=== PATIENT | male | born 1945 | race Caucasian/White ===

== ENCOUNTER 2020-05-14 16:29 | Inpatient (IN) ==
[2020-05-14] MEDS ORDERED: SODIUM CHLORIDE 0.9% 1,000 ML IV STA ×2 (18:09→21:28)
[2020-05-14 18:26] LABS: Basophils % 0.4 % (0.0-0.8); Eosinophils # 0.2 10*3/uL (0.0-0.87); Eosinophils % 1.9 % (0.00-10.9); Hematocrit 33.5 VOL% (42.0-52.0); Hemoglobin 10.7 GM/DL (14.0-18.0); Immature Granulocytes % 0.4 %; Immature Granulocytes Absolute 0.04 #; Lymphocytes # 1.3 10*3/uL (1.4-4.0); Lymphocytes % 11.1 % (21.2-54.2); Mean Corpuscular HGB Conc 31.9 GM/DL (32-36); Mean Platelet Volume 10.3 FL (9.6-12.0); Monocytes % 6.3 % (1.7-12.7); Neutrophils % 79.9 % (38.7-73.9); Platelet Count 189 T/CUMM (130-400); Red Blood Count 3.42 MC/CUMM (3.8-5.5); Red Cell Distribution Width 13.7 % (9.3-17.3); White Blood Count 11.3 T/CUMM (4-12)
[2020-05-14] MEDS ORDERED: KETOROLAC 30 MG/1 ML VIAL IV STA (18:28)
[2020-05-14] MEDS ORDERED: ONDANSETRON 4 MG/2 ML VIAL IV ONE (18:29)
[2020-05-14 18:59] LABS: Albumin 3.5 G/DL (3.4-5.0); Bilirubin,Total 1.1 MG/DL (0.2-1.0); Osmolality,Calculated 288.4 MOS/KG (273-304); Total Protein 6.8 G/DL (6.4-8.3)
[2020-05-14] MEDS ORDERED: SODIUM CHLORIDE 0.9% 500 ML IV STA (20:15)
[2020-05-14 21:57] LABS: Basophils % 0.3 % (0.0-0.8); Eosinophils % 0.3 % (0.00-10.9); Hematocrit 27.9 VOL% (42.0-52.0); Hemoglobin 8.7 GM/DL (14.0-18.0); Immature Granulocytes % 0.4 %; Immature Granulocytes Absolute 0.05 #; Lymphocytes # 1.1 10*3/uL (1.4-4.0); Lymphocytes % 9.7 % (21.2-54.2); Mean Corpuscular HGB Conc 31.2 GM/DL (32-36); Mean Corpuscular Volume 98.6 FL (87-102); Mean Platelet Volume 9.8 FL (9.6-12.0); Neutrophils % 84.3 % (38.7-73.9); Platelet Count 170 T/CUMM (130-400); Red Blood Count 2.83 MC/CUMM (3.8-5.5); Red Cell Distribution Width 13.8 % (9.3-17.3); White Blood Count 11.3 T/CUMM (4-12)
[2020-05-14] MEDS: SODIUM CHLORIDE 0.9% 1,000 ML IV SCH (22:11)
[2020-05-14] MEDS ORDERED: MORPHINE 4 MG/1 ML VIAL IV PRN (22:30)
[2020-05-14] MEDS ORDERED: GLUCAGON 1 MG VIAL IM PRN (22:30)
[2020-05-14] MEDS ORDERED: ONDANSETRON 4 MG/2 ML VIAL IV PRN (22:30)
[2020-05-14] MEDS ORDERED: DEXTROSE 50% 25 GM/50 ML VIAL IV PRN (22:30)
[2020-05-15] MEDS ORDERED: SODIUM CHLORIDE 0.9% 1,000 ML IV PRN ×7 (00:59→17:25)
[2020-05-15 02:48] LABS: Basophils % 0.2 % (0.0-0.8); Hematocrit 25.8 VOL% (42.0-52.0); Immature Granulocytes % 0.4 %; Immature Granulocytes Absolute 0.04 #; Lymphocytes # 1.2 10*3/uL (1.4-4.0); Lymphocytes % 10.9 % (21.2-54.2); Mean Corpuscular Volume 99.6 FL (87-102); Mean Platelet Volume 10.3 FL (9.6-12.0); Monocytes % 5.4 % (1.7-12.7); Neutrophils % 83.1 % (38.7-73.9); Platelet Count 153 T/CUMM (130-400); Red Blood Count 2.59 MC/CUMM (3.8-5.5); White Blood Count 10.8 T/CUMM (4-12)
[2020-05-15] MEDS: SODIUM CHLORIDE 0.9% 1,000 ML IV SCH ×3 (07:00→19:39)
[2020-05-15] MEDS ORDERED: LACTATED RINGERS 1,000 ML IV ONE (07:44)
[2020-05-15 08:02] LABS: Basophils % 0.1 % (0.0-0.8); Hematocrit 25.8 VOL% (42.0-52.0); Hemoglobin 8.1 GM/DL (14.0-18.0); Immature Granulocytes % 0.6 %; Immature Granulocytes Absolute 0.06 #; Lymphocytes # 1.3 10*3/uL (1.4-4.0); Lymphocytes % 13.4 % (21.2-54.2); Mean Corpuscular HGB Conc 31.4 GM/DL (32-36); Mean Corpuscular Volume 97.7 FL (87-102); Neutrophils % 77.9 % (38.7-73.9); Platelet Count 125 T/CUMM (130-400); Red Blood Count 2.64 MC/CUMM (3.8-5.5); Red Cell Distribution Width 15.3 % (9.3-17.3); White Blood Count 9.4 T/CUMM (4-12)
[2020-05-15 08:27] LABS: Calcium 7.8 MG/DL (8.5-10.1); Osmolality,Calculated 298.7 MOS/KG (273-304); Risk Ratio 3.93; Thyroid Stimulating Hormone 2.75 uIU/ml (0.358-3.74); VLDL CHOLESTEROL 14.8 MG/DL
[2020-05-15 08:58] LABS: INR 1.1; PT Patient Result 11.4 SECS (9.8-11.9)
[2020-05-15] MEDS: PANTOPRAZOLE 40 MG TABLET PO SCH (09:45)
[2020-05-15] MEDS: DOXAZOSIN 4 MG TABLET PO SCH ×2 (10:40→21:32)
[2020-05-15 10:58] LABS: Bilirubin,Urine Negative (Negative); Blood, Urine Negative (Negative); Glucose,Urine (UA) Negative (Negative); Hyaline Casts,Urine 5 /LPF (0-3); Ketones,Urine 5 mg/dL (Negative); Mucus,Urine Occasional /LPF (Occasional); Nitrite,Urine Negative (Negative); Protein,Urine 100 MG/DL; RBC,Urine 1 /HPF (0-4); Squamous Epithelial Cell,Urine Occasional /HPF (0-10); Urine Appearance CLOUDY (Clear); Urine Color Amber (Yellow); Urine Specific Gravity 1.023 (1.001-1.035); WBC,Urine 3 /HPF (0-6)
[2020-05-15] MEDS ORDERED: NOREPINEPHRINE 8 MG in SODIUM CHLORIDE 0.9% 242 ML IV PRN (12:35)
[2020-05-15] MEDS ORDERED: NOREPINEPHRINE 4 MG/4 ML VIAL IV ONE (12:38)
[2020-05-15 13:08] LABS: PT Patient Result 11.1 SECS (9.8-11.9); Partial Thromboplastin Time 25.9 SECS (23.9-33.8)
[2020-05-15 14:48] LABS: Basophils % 0.3 % (0.0-0.8); Eosinophils % 0.3 % (0.00-10.9); Hematocrit 27.9 VOL% (42.0-52.0); Hemoglobin 8.9 GM/DL (14.0-18.0); Immature Granulocytes % 0.6 %; Immature Granulocytes Absolute 0.06 #; Lymphocytes # 1.4 10*3/uL (1.4-4.0); Mean Corpuscular HGB Conc 31.9 GM/DL (32-36); Mean Corpuscular Volume 94.9 FL (87-102); Mean Platelet Volume 9.8 FL (9.6-12.0); Monocytes % 8.7 % (1.7-12.7); Neutrophils % 76.1 % (38.7-73.9); Platelet Count 133 T/CUMM (130-400); Red Blood Count 2.94 MC/CUMM (3.8-5.5); White Blood Count 9.9 T/CUMM (4-12)
[2020-05-15] MEDS ORDERED: PROTHROMBIN COMPLEX IV ONE (15:00)
[2020-05-15] MEDS ORDERED: HYDROmorphone 2 MG/1 ML VIAL ONE (15:43)
[2020-05-15 16:23] LABS: Basophils % 0.1 % (0.0-0.8); Eosinophils # 0.1 10*3/uL (0.0-0.87); Eosinophils % 0.5 % (0.00-10.9); Hematocrit 26.3 VOL% (42.0-52.0); Hemoglobin 8.5 GM/DL (14.0-18.0); Immature Granulocytes % 0.4 %; Immature Granulocytes Absolute 0.04 #; Lymphocytes # 1.4 10*3/uL (1.4-4.0); Lymphocytes % 13.9 % (21.2-54.2); Mean Corpuscular HGB Conc 32.3 GM/DL (32-36); Mean Corpuscular Volume 94.3 FL (87-102); Mean Platelet Volume 10.4 FL (9.6-12.0); Monocytes % 9.4 % (1.7-12.7); Neutrophils % 75.7 % (38.7-73.9); Platelet Count 148 T/CUMM (130-400); Red Blood Count 2.79 MC/CUMM (3.8-5.5); White Blood Count 10.3 T/CUMM (4-12)
[2020-05-15] MEDS: ATORVASTATIN 40 MG TABLET PO SCH (21:32)
[2020-05-16] MEDS: SODIUM CHLORIDE 0.9% 1,000 ML IV SCH ×2 (02:55→11:41)
[2020-05-16 05:17] LABS: Hematocrit 29.3 VOL% (42.0-52.0); Hemoglobin 9.3 GM/DL (14.0-18.0)
[2020-05-16] MEDS: DOXAZOSIN 4 MG TABLET PO SCH ×2 (08:40→21:08)
[2020-05-16] MEDS: PANTOPRAZOLE 40 MG TABLET PO SCH (08:40)
[2020-05-16] MEDS ORDERED: FUROSEMIDE 40 MG/4 ML VIAL IV ONE (09:31)
[2020-05-16 09:40] LABS: Basophils % 0.2 % (0.0-0.8); Eosinophils % 0.4 % (0.00-10.9); Hematocrit 28.8 VOL% (42.0-52.0); Immature Granulocytes % 0.8 %; Immature Granulocytes Absolute 0.09 #; Lymphocytes # 1.1 10*3/uL (1.4-4.0); Lymphocytes % 10.4 % (21.2-54.2); Mean Corpuscular HGB Conc 31.3 GM/DL (32-36); Mean Corpuscular Volume 95.7 FL (87-102); Mean Platelet Volume 9.7 FL (9.6-12.0); Monocytes % 10.3 % (1.7-12.7); Neutrophils % 77.9 % (38.7-73.9); Platelet Count 151 T/CUMM (130-400); Red Blood Count 3.01 MC/CUMM (3.8-5.5); White Blood Count 10.8 T/CUMM (4-12)
[2020-05-16 09:56] LABS: Calcium 7.6 MG/DL (8.5-10.1); Osmolality,Calculated 293.3 MOS/KG (273-304)
[2020-05-16] MEDS ORDERED: CALCIUM GLUCONATE 1,000 MG in SODIUM CHLORIDE 0.9% 100 ML IV ONE (13:00)
[2020-05-16] MEDS: ATORVASTATIN 40 MG TABLET PO SCH (21:08)
[2020-05-17] MEDS: MORPHINE 4 MG/1 ML VIAL IV PRN ×2 (04:36→20:01)
[2020-05-17] MEDS: ALBUTEROL 2.5 MG/3 ML NEB RESP TX PRN (04:40)
[2020-05-17 06:58] LABS: Basophils % 0.2 % (0.0-0.8); Eosinophils # 0.1 10*3/uL (0.0-0.87); Eosinophils % 0.6 % (0.00-10.9); Hematocrit 26.2 VOL% (42.0-52.0); Hemoglobin 8.3 GM/DL (14.0-18.0); Immature Granulocytes % 0.5 %; Immature Granulocytes Absolute 0.05 #; Lymphocytes # 0.9 10*3/uL (1.4-4.0); Lymphocytes % 9.1 % (21.2-54.2); Mean Corpuscular HGB Conc 31.7 GM/DL (32-36); Mean Platelet Volume 9.7 FL (9.6-12.0); Monocytes % 10.9 % (1.7-12.7); Neutrophils % 78.7 % (38.7-73.9); Platelet Count 137 T/CUMM (130-400); Red Cell Distribution Width 15.5 % (9.3-17.3); White Blood Count 9.7 T/CUMM (4-12)
[2020-05-17 07:23] LABS: Calcium 7.6 MG/DL (8.5-10.1); Osmolality,Calculated 288.8 MOS/KG (273-304)
[2020-05-17] MEDS: DOXAZOSIN 4 MG TABLET PO SCH ×2 (09:13→21:50)
[2020-05-17] MEDS: PANTOPRAZOLE 40 MG TABLET PO SCH (09:14)
[2020-05-17] MEDS: ATORVASTATIN 40 MG TABLET PO SCH (21:50)
[2020-05-18] MEDS: MORPHINE 4 MG/1 ML VIAL IV PRN ×3 (01:05→11:18)
[2020-05-18 03:47] LABS: Basophils % 0.1 % (0.0-0.8); Eosinophils # 0.1 10*3/uL (0.0-0.87); Eosinophils % 1.3 % (0.00-10.9); Hematocrit 26.1 VOL% (42.0-52.0); Hemoglobin 8.1 GM/DL (14.0-18.0); Immature Granulocytes % 0.4 %; Immature Granulocytes Absolute 0.03 #; Lymphocytes # 0.8 10*3/uL (1.4-4.0); Lymphocytes % 11.2 % (21.2-54.2); Mean Corpuscular Volume 97.4 FL (87-102); Monocytes % 9.5 % (1.7-12.7); Neutrophils % 77.5 % (38.7-73.9); Platelet Count 137 T/CUMM (130-400); Red Blood Count 2.68 MC/CUMM (3.8-5.5); Red Cell Distribution Width 15.2 % (9.3-17.3); White Blood Count 7.1 T/CUMM (4-12)
[2020-05-18 04:05] LABS: Calcium 7.6 MG/DL (8.5-10.1); Osmolality,Calculated 294.7 MOS/KG (273-304)
[2020-05-18] MEDS: OXYMETAZOLINE 0.05% NASAL SPRAY 15 ML BOTTLE BOTH NARES PRN ×2 (04:50→14:35)
[2020-05-18] MEDS ORDERED: SODIUM CHLORIDE 0.9% 1,000 ML IV PRN (06:29)
[2020-05-18] MEDS: DOXAZOSIN 4 MG TABLET PO SCH ×2 (09:10→22:15)
[2020-05-18] MEDS: PANTOPRAZOLE 40 MG TABLET PO SCH (09:10)
[2020-05-18] MEDS: ATORVASTATIN 40 MG TABLET PO SCH (22:15)
[2020-05-19 06:22] LABS: Calcium 7.8 MG/DL (8.5-10.1); Osmolality,Calculated 303.4 MOS/KG (273-304)
[2020-05-19 09:00] LABS: Basophils % 0.1 % (0.0-0.8); Eosinophils # 0.1 10*3/uL (0.0-0.87); Hematocrit 30.9 VOL% (42.0-52.0); Hemoglobin 9.7 GM/DL (14.0-18.0); Immature Granulocytes % 0.3 %; Immature Granulocytes Absolute 0.02 #; Lymphocytes # 0.6 10*3/uL (1.4-4.0); Lymphocytes % 8.1 % (21.2-54.2); Mean Corpuscular HGB Conc 31.4 GM/DL (32-36); Mean Corpuscular Volume 98.1 FL (87-102); Mean Platelet Volume 10.2 FL (9.6-12.0); Monocytes % 8.5 % (1.7-12.7); Platelet Count 139 T/CUMM (130-400); Red Blood Count 3.15 MC/CUMM (3.8-5.5); Red Cell Distribution Width 15.4 % (9.3-17.3); White Blood Count 6.9 T/CUMM (4-12)
[2020-05-19] MEDS: DOXAZOSIN 4 MG TABLET PO SCH ×2 (09:10→21:04)
[2020-05-19] MEDS: PANTOPRAZOLE 40 MG TABLET PO SCH (09:11)
[2020-05-19] MEDS: MORPHINE 4 MG/1 ML VIAL IV PRN (09:33)
[2020-05-19] MEDS: ATORVASTATIN 40 MG TABLET PO SCH (21:03)
[2020-05-20 05:48] LABS: Eosinophils # 0.1 10*3/uL (0.0-0.87); Eosinophils % 1.4 % (0.00-10.9); Hematocrit 31.6 VOL% (42.0-52.0); Immature Granulocytes % 0.4 %; Immature Granulocytes Absolute 0.02 #; Lymphocytes # 0.5 10*3/uL (1.4-4.0); Lymphocytes % 9.2 % (21.2-54.2); Mean Corpuscular HGB Conc 31.6 GM/DL (32-36); Mean Corpuscular Volume 98.1 FL (87-102); Mean Platelet Volume 9.7 FL (9.6-12.0); Monocytes % 11.2 % (1.7-12.7); Neutrophils % 77.8 % (38.7-73.9); Platelet Count 132 T/CUMM (130-400); Red Blood Count 3.22 MC/CUMM (3.8-5.5); Red Cell Distribution Width 15.2 % (9.3-17.3)
[2020-05-20 05:52] LABS: Calcium 7.8 MG/DL (8.5-10.1); Osmolality,Calculated 307.3 MOS/KG (273-304)
[2020-05-20] MEDS: DOXAZOSIN 4 MG TABLET PO SCH ×3 (08:18→20:59)
[2020-05-20] MEDS: PANTOPRAZOLE 40 MG TABLET PO SCH (08:18)
[2020-05-20] MEDS: ALBUTEROL 2.5 MG/3 ML NEB RESP TX PRN (14:11)
[2020-05-20] MEDS ORDERED: FUROSEMIDE 40 MG/4 ML VIAL IV ONE (15:17)
[2020-05-20] MEDS: ATORVASTATIN 40 MG TABLET PO SCH (20:58)
[2020-05-21 05:09] LABS: Basophils % 0.2 % (0.0-0.8); Eosinophils # 0.1 10*3/uL (0.0-0.87); Eosinophils % 1.8 % (0.00-10.9); Hematocrit 31.6 VOL% (42.0-52.0); Hemoglobin 9.7 GM/DL (14.0-18.0); Immature Granulocytes % 0.2 %; Immature Granulocytes Absolute 0.01 #; Lymphocytes # 0.5 10*3/uL (1.4-4.0); Lymphocytes % 10.5 % (21.2-54.2); Mean Corpuscular HGB Conc 30.7 GM/DL (32-36); Mean Corpuscular Volume 98.8 FL (87-102); Mean Platelet Volume 9.9 FL (9.6-12.0); Monocytes % 12.3 % (1.7-12.7); Platelet Count 127 T/CUMM (130-400); Red Cell Distribution Width 15.1 % (9.3-17.3); White Blood Count 4.5 T/CUMM (4-12)
[2020-05-21 05:28] LABS: Basophils % 0.3 % (0.0-0.8); Eosinophils # 0.1 10*3/uL (0.0-0.87); Eosinophils % 1.8 % (0.00-10.9); Hemoglobin 10.7 GM/DL (14.0-18.0); Immature Granulocytes Absolute 0.12 #; Lymphocytes # 1.4 10*3/uL (1.4-4.0); Lymphocytes % 23.1 % (21.2-54.2); Mean Corpuscular HGB Conc 30.6 GM/DL (32-36); Mean Platelet Volume 9.7 FL (9.6-12.0); NRBC # 0.06 10*3/uL; Neutrophils % 62.8 % (38.7-73.9); Platelet Count 150 T/CUMM (130-400); Red Cell Distribution Width 15.4 % (9.3-17.3)
[2020-05-21 05:30] LABS: ABG Base Excess -5.3 MMOL/L (-2.5-2.5); ABG HCO3 20.1 MMOL/L (20-26); ABG Oxygen Saturation 99.9 % (95-100); ABG PCO2 65.6 MM HG (35-48); ABG TCO2 22.7 MMOL/L (23-27); Allen Test Positive; Pt O2 Delivery Device Ventilator
[2020-05-21] MEDS ORDERED: NOREPINEPHRINE 4 MG/4 ML VIAL IV ONE (05:33)
[2020-05-21 05:34] LABS: Calcium 8.2 MG/DL (8.5-10.1); Osmolality,Calculated 305.4 MOS/KG (273-304)
[2020-05-21 05:37] LABS: ABG PH 7.177 (7.35-7.45)
[2020-05-21] MEDS ORDERED: SODIUM CHLORIDE 0.9% 1,000 ML IV ONE (05:47)
[2020-05-21 05:50] LABS: CKMB % 12.5 %; Calcium 8.1 MG/DL (8.5-10.1)
[2020-05-21 05:52] LABS: Troponin I 7.21 NG/ML (0.00-0.045)
[2020-05-21] MEDS: NOREPINEPHRINE 8 MG in SODIUM CHLORIDE 0.9% 242 ML IV PRN ×2 (05:56→16:21)
[2020-05-21] MEDS: MIDAZOLAM 100 MG in SODIUM CHLORIDE 0.9% 80 ML IV PRN (06:25)
[2020-05-21] MEDS ORDERED: GLUCAGON 1 MG VIAL IM PRN (06:52)
[2020-05-21] MEDS ORDERED: DEXTROSE 50% 25 GM/50 ML VIAL IV PRN (06:52)
[2020-05-21] MEDS: PANTOPRAZOLE 40 MG VIAL IV SCH (08:38)
[2020-05-21 10:07] LABS: ABG Base Excess -6.1 MMOL/L (-2.5-2.5); ABG HCO3 19.4 MMOL/L (20-26); ABG Oxygen Saturation 99.2 % (95-100); ABG PCO2 42.2 MM HG (35-48); ABG PH 7.289 (7.35-7.45); ABG TCO2 18.4 MMOL/L (23-27); Allen Test Positive; Pt O2 Delivery Device Ventilator
[2020-05-21] MEDS: DOXAZOSIN 4 MG TABLET PO SCH (10:57)
[2020-05-21 10:59] LABS: CKMB % 9.6 %
[2020-05-21 11:02] LABS: Troponin I 9.78 NG/ML (0.00-0.045)
[2020-05-21 12:48] LABS: CKMB % 8.5 %
[2020-05-21 12:51] LABS: Troponin I 10.6 NG/ML (0.00-0.045)
[2020-05-21 16:26] LABS: CKMB % 6.3 %
[2020-05-21 16:30] LABS: Troponin I 11.9 NG/ML (0.00-0.045)
[2020-05-21] MEDS: ATORVASTATIN 40 MG TABLET PO SCH (20:10)
[2020-05-22 04:05] LABS: Basophils % 0.2 % (0.0-0.8); Eosinophils # 0.1 10*3/uL (0.0-0.87); Eosinophils % 1.8 % (0.00-10.9); Hematocrit 29.1 VOL% (42.0-52.0); Hemoglobin 9.4 GM/DL (14.0-18.0); Immature Granulocytes % 0.5 %; Immature Granulocytes Absolute 0.03 #; Lymphocytes # 0.8 10*3/uL (1.4-4.0); Lymphocytes % 13.5 % (21.2-54.2); Mean Corpuscular HGB Conc 32.3 GM/DL (32-36); Mean Platelet Volume 9.7 FL (9.6-12.0); Monocytes % 14.3 % (1.7-12.7); Neutrophils % 69.7 % (38.7-73.9); Platelet Count 147 T/CUMM (130-400); Red Blood Count 3.03 MC/CUMM (3.8-5.5); Red Cell Distribution Width 15.4 % (9.3-17.3); White Blood Count 6.2 T/CUMM (4-12)
[2020-05-22 04:20] LABS: Calcium 7.6 MG/DL (8.5-10.1); Osmolality,Calculated 317.7 MOS/KG (273-304)
[2020-05-22 04:45] LABS: ABG Base Excess -2.1 MMOL/L (-2.5-2.5); ABG HCO3 22.7 MMOL/L (20-26); ABG Oxygen Saturation 99.9 % (95-100); ABG PCO2 33.1 MM HG (35-48); ABG PH 7.424 (7.35-7.45); ABG TCO2 19.7 MMOL/L (23-27)
[2020-05-22] MEDS: PANTOPRAZOLE 40 MG VIAL IV SCH (08:08)
[2020-05-22] MEDS: ASPIRIN CHEW 81 MG TABLET PO SCH (08:42)
[2020-05-22 08:57] LABS: CKMB % 2.5 %
[2020-05-22 08:58] LABS: Troponin I 14.6 NG/ML (0.00-0.045)
[2020-05-22] MEDS: NOREPINEPHRINE 8 MG in SODIUM CHLORIDE 0.9% 242 ML IV PRN (09:51)
[2020-05-22 12:05] LABS: CKMB % 2.4 %
[2020-05-22] MEDS: ATORVASTATIN 40 MG TABLET PO SCH (21:11)
[2020-05-23] MEDS: MIDAZOLAM 100 MG in SODIUM CHLORIDE 0.9% 80 ML IV PRN (03:28)
[2020-05-23 03:56] LABS: Basophils % 0.2 % (0.0-0.8); Eosinophils # 0.1 10*3/uL (0.0-0.87); Hematocrit 30.2 VOL% (42.0-52.0); Hemoglobin 9.8 GM/DL (14.0-18.0); Immature Granulocytes % 0.8 %; Immature Granulocytes Absolute 0.05 #; Lymphocytes # 0.9 10*3/uL (1.4-4.0); Lymphocytes % 13.3 % (21.2-54.2); Mean Corpuscular HGB Conc 32.5 GM/DL (32-36); Mean Corpuscular Volume 94.4 FL (87-102); Mean Platelet Volume 10.1 FL (9.6-12.0); Neutrophils % 71.7 % (38.7-73.9); Platelet Count 150 T/CUMM (130-400); Red Cell Distribution Width 15.7 % (9.3-17.3); White Blood Count 6.6 T/CUMM (4-12)
[2020-05-23 04:26] LABS: Albumin 1.9 G/DL (3.4-5.0); Calcium 8.3 MG/DL (8.5-10.1); Osmolality,Calculated 320.6 MOS/KG (273-304); Total Protein 5.5 G/DL (6.4-8.3)
[2020-05-23 05:07] LABS: ABG Base Excess -0.7 MMOL/L (-2.5-2.5); ABG HCO3 23.8 MMOL/L (20-26); ABG Oxygen Saturation 97.8 % (95-100); ABG PCO2 33.3 MM HG (35-48); ABG PH 7.445 (7.35-7.45); ABG PO2 97.4 MM HG (80-95); Pt O2 Delivery Device Ventilator
[2020-05-23] MEDS: ASPIRIN CHEW 81 MG TABLET PO SCH (08:37)
[2020-05-23] MEDS: PANTOPRAZOLE 40 MG VIAL IV SCH (08:37)
[2020-05-23] MEDS: ATORVASTATIN 40 MG TABLET PO SCH (20:06)
[2020-05-23] MEDS: ACETAMINOPHEN 325 MG TABLET PO PRN (23:33)
[2020-05-24 02:49] LABS: ABG Base Excess -0.4 MMOL/L (-2.5-2.5); ABG HCO3 24.1 MMOL/L (20-26); ABG Oxygen Saturation 99.3 % (95-100); ABG PCO2 36.5 MM HG (35-48); ABG PH 7.422 (7.35-7.45); ABG TCO2 21.8 MMOL/L (23-27)
[2020-05-24 02:55] LABS: Basophils % 0.1 % (0.0-0.8); Eosinophils # 0.2 10*3/uL (0.0-0.87); Eosinophils % 1.8 % (0.00-10.9); Hematocrit 29.3 VOL% (42.0-52.0); Hemoglobin 9.3 GM/DL (14.0-18.0); Immature Granulocytes Absolute 0.08 #; Lymphocytes # 0.9 10*3/uL (1.4-4.0); Lymphocytes % 10.9 % (21.2-54.2); Mean Corpuscular HGB Conc 31.7 GM/DL (32-36); Mean Corpuscular Volume 96.7 FL (87-102); Mean Platelet Volume 9.8 FL (9.6-12.0); Monocytes % 13.5 % (1.7-12.7); Neutrophils % 72.7 % (38.7-73.9); Platelet Count 159 T/CUMM (130-400); Red Blood Count 3.03 MC/CUMM (3.8-5.5); Red Cell Distribution Width 15.9 % (9.3-17.3); White Blood Count 8.2 T/CUMM (4-12)
[2020-05-24 03:15] LABS: Calcium 8.2 MG/DL (8.5-10.1); Osmolality,Calculated 318.7 MOS/KG (273-304)
[2020-05-24] MEDS: ASPIRIN CHEW 81 MG TABLET PO SCH (08:33)
[2020-05-24] MEDS: PANTOPRAZOLE 40 MG VIAL IV SCH (08:33)
[2020-05-24] MEDS ORDERED: SODIUM PHOSPHATE INJ 20 MMOL in SODIUM CHLORIDE 0.9% 250 ML IV ONE (10:00)
[2020-05-24] MEDS: ACETAMINOPHEN 325 MG TABLET PO PRN (12:12)
[2020-05-24] MEDS: ATORVASTATIN 40 MG TABLET PO SCH (21:43)
[2020-05-25 03:27] LABS: ABG Base Excess -0.1 MMOL/L (-2.5-2.5); ABG HCO3 24.3 MMOL/L (20-26); ABG PCO2 38.3 MM HG (35-48); ABG TCO2 22.3 MMOL/L (23-27)
[2020-05-25 05:24] LABS: Basophils % 0.2 % (0.0-0.8); Eosinophils # 0.3 10*3/uL (0.0-0.87); Eosinophils % 3.4 % (0.00-10.9); Hematocrit 31.9 VOL% (42.0-52.0); Hemoglobin 9.9 GM/DL (14.0-18.0); Immature Granulocytes % 0.8 %; Immature Granulocytes Absolute 0.07 #; Lymphocytes # 0.9 10*3/uL (1.4-4.0); Lymphocytes % 11.2 % (21.2-54.2); Mean Corpuscular Volume 98.8 FL (87-102); Mean Platelet Volume 9.8 FL (9.6-12.0); Monocytes % 13.8 % (1.7-12.7); Neutrophils % 70.6 % (38.7-73.9); Platelet Count 152 T/CUMM (130-400); Red Blood Count 3.23 MC/CUMM (3.8-5.5); Red Cell Distribution Width 15.8 % (9.3-17.3); White Blood Count 8.4 T/CUMM (4-12)
[2020-05-25 05:37] LABS: Calcium 8.4 MG/DL (8.5-10.1); Osmolality,Calculated 320.8 MOS/KG (273-304)
[2020-05-25] MEDS: SODIUM CHLORIDE 0.45% 1,000 ML IV SCH ×2 (08:25→21:48)
[2020-05-25] MEDS: PANTOPRAZOLE 40 MG VIAL IV SCH (08:30)
[2020-05-25] MEDS: ASPIRIN CHEW 81 MG TABLET PO SCH (08:30)
[2020-05-25] MEDS: ACETAMINOPHEN 325 MG TABLET PO PRN (08:32)
[2020-05-25] MEDS: METOPROLOL TARTRATE 25 MG TABLET PO SCH (11:34)
[2020-05-25] MEDS: ATORVASTATIN 40 MG TABLET PO SCH (20:02)
[2020-05-26 04:40] LABS: ABG Base Excess -1.1 MMOL/L (-2.5-2.5); ABG HCO3 23.5 MMOL/L (20-26); ABG Oxygen Saturation 98.9 % (95-100); ABG PCO2 40.2 MM HG (35-48); ABG PH 7.381 (7.35-7.45); ABG TCO2 21.2 MMOL/L (23-27); Allen Test Positive; Pt O2 Delivery Device Ventilator
[2020-05-26 04:53] LABS: Basophils % 0.3 % (0.0-0.8); Eosinophils # 0.3 10*3/uL (0.0-0.87); Eosinophils % 2.7 % (0.00-10.9); Hematocrit 29.3 VOL% (42.0-52.0); Hemoglobin 8.9 GM/DL (14.0-18.0); Immature Granulocytes % 0.5 %; Immature Granulocytes Absolute 0.06 #; Lymphocytes # 0.9 10*3/uL (1.4-4.0); Lymphocytes % 7.5 % (21.2-54.2); Mean Corpuscular HGB Conc 30.4 GM/DL (32-36); Mean Corpuscular Volume 99.7 FL (87-102); Monocytes % 11.9 % (1.7-12.7); Neutrophils % 77.1 % (38.7-73.9); Platelet Count 173 T/CUMM (130-400); Red Blood Count 2.94 MC/CUMM (3.8-5.5); Red Cell Distribution Width 15.6 % (9.3-17.3); White Blood Count 11.5 T/CUMM (4-12)
[2020-05-26 05:14] LABS: Calcium 8.2 MG/DL (8.5-10.1); Osmolality,Calculated 325.7 MOS/KG (273-304)
[2020-05-26] MEDS: METOPROLOL TARTRATE 25 MG TABLET PO SCH (09:07)
[2020-05-26] MEDS: ASPIRIN CHEW 81 MG TABLET PO SCH (09:07)
[2020-05-26] MEDS: PANTOPRAZOLE 40 MG VIAL IV SCH (09:13)
[2020-05-26] MEDS: FUROSEMIDE 20 MG/2 ML VIAL IV SCH ×2 (11:11→20:32)
[2020-05-26] MEDS: MIDAZOLAM 100 MG in SODIUM CHLORIDE 0.9% 80 ML IV PRN (13:18)
[2020-05-26] MEDS: SODIUM CHLORIDE 0.45% 1,000 ML IV SCH ×2 (13:20→18:55)
[2020-05-26] MEDS: ATORVASTATIN 40 MG TABLET PO SCH (20:33)
[2020-05-27 05:03] LABS: ABG Base Excess -1.2 MMOL/L (-2.5-2.5); ABG HCO3 23.4 MMOL/L (20-26); ABG Oxygen Saturation 98.4 % (95-100); ABG PCO2 37.9 MM HG (35-48); ABG PH 7.397 (7.35-7.45); ABG TCO2 21.4 MMOL/L (23-27); Allen Test Positive; Pt O2 Delivery Device Ventilator
[2020-05-27 05:08] LABS: Calcium 8.4 MG/DL (8.5-10.1); Osmolality,Calculated 315.4 MOS/KG (273-304)
[2020-05-27 06:31] LABS: Basophils % 0.2 % (0.0-0.8); Eosinophils # 0.3 10*3/uL (0.0-0.87); Eosinophils % 2.1 % (0.00-10.9); Hematocrit 30.7 VOL% (42.0-52.0); Hemoglobin 9.5 GM/DL (14.0-18.0); Immature Granulocytes % 0.9 %; Immature Granulocytes Absolute 0.11 #; Lymphocytes # 0.9 10*3/uL (1.4-4.0); Lymphocytes % 7.6 % (21.2-54.2); Mean Corpuscular HGB Conc 30.9 GM/DL (32-36); Mean Corpuscular Volume 98.4 FL (87-102); Monocytes % 9.1 % (1.7-12.7); Neutrophils % 80.1 % (38.7-73.9); Platelet Count 185 T/CUMM (130-400); Red Blood Count 3.12 MC/CUMM (3.8-5.5); Red Cell Distribution Width 15.5 % (9.3-17.3)
[2020-05-27] MEDS: METOPROLOL TARTRATE 25 MG TABLET PO SCH (08:59)
[2020-05-27] MEDS: ASPIRIN CHEW 81 MG TABLET PO SCH (08:59)
[2020-05-27] MEDS: PANTOPRAZOLE 40 MG VIAL IV SCH (09:00)
[2020-05-27] MEDS: FUROSEMIDE 20 MG/2 ML VIAL IV SCH ×2 (09:01→20:50)
[2020-05-27] MEDS: SODIUM CHLORIDE 0.45% 1,000 ML IV SCH ×2 (09:11→13:19)
[2020-05-27] MEDS ORDERED: SODIUM POLYSTYRENE SULFATE 15 GM/60 ML BOTTLE PO ONE (09:47)
[2020-05-27] MEDS: ATORVASTATIN 40 MG TABLET PO SCH (20:51)
[2020-05-28 04:07] LABS: Basophils % 0.3 % (0.0-0.8); Eosinophils # 0.2 10*3/uL (0.0-0.87); Eosinophils % 2.2 % (0.00-10.9); Hematocrit 29.2 VOL% (42.0-52.0); Immature Granulocytes % 0.8 %; Immature Granulocytes Absolute 0.09 #; Lymphocytes # 0.9 10*3/uL (1.4-4.0); Lymphocytes % 8.6 % (21.2-54.2); Mean Corpuscular HGB Conc 30.8 GM/DL (32-36); Mean Corpuscular Volume 96.7 FL (87-102); Mean Platelet Volume 10.4 FL (9.6-12.0); Monocytes % 10.6 % (1.7-12.7); Neutrophils % 77.5 % (38.7-73.9); Platelet Count 215 T/CUMM (130-400); Red Blood Count 3.02 MC/CUMM (3.8-5.5); Red Cell Distribution Width 15.3 % (9.3-17.3); White Blood Count 10.9 T/CUMM (4-12)
[2020-05-28 04:26] LABS: ABG Base Excess -1.6 MMOL/L (-2.5-2.5); ABG HCO3 23.1 MMOL/L (20-26); ABG Oxygen Saturation 98.1 % (95-100); ABG PCO2 39.3 MM HG (35-48); ABG PH 7.381 (7.35-7.45); Allen Test Positive; Pt O2 Delivery Device Ventilator
[2020-05-28 04:34] LABS: Calcium 8.1 MG/DL (8.5-10.1); Osmolality,Calculated 319.3 MOS/KG (273-304)
[2020-05-28] MEDS: ASPIRIN CHEW 81 MG TABLET PO SCH (08:18)
[2020-05-28] MEDS: PANTOPRAZOLE 40 MG VIAL IV SCH (08:18)
[2020-05-28] MEDS: METOPROLOL TARTRATE 25 MG TABLET PO SCH (08:18)
[2020-05-28] MEDS: SODIUM CHLORIDE 0.45% 1,000 ML IV SCH (10:00)
[2020-05-28 10:10] LABS: Osmolality,Calculated 314.8 MOS/KG (273-304)
[2020-05-28] MEDS: SODIUM BICARBONATE 650 MG TABLET PER TUBE SCH ×2 (14:57→20:51)
[2020-05-28] MEDS: MIDAZOLAM 100 MG in SODIUM CHLORIDE 0.9% 80 ML IV PRN (17:52)
[2020-05-28] MEDS ORDERED: MIDAZOLAM 100 MG in SODIUM CHLORIDE 0.9% 80 ML IV PRN (18:30)
[2020-05-28] MEDS: ATORVASTATIN 40 MG TABLET PO SCH (20:51)
[2020-05-29 03:23] LABS: ABG Base Excess -1.4 MMOL/L (-2.5-2.5); ABG HCO3 23.2 MMOL/L (20-26); ABG Oxygen Saturation 96.5 % (95-100); ABG PCO2 35.3 MM HG (35-48); ABG PH 7.416 (7.35-7.45); ABG PO2 79.3 MM HG (80-95); ABG TCO2 20.8 MMOL/L (23-27); Allen Test Positive; Pt O2 Delivery Device Ventilator
[2020-05-29 05:42] LABS: Calcium 8.4 MG/DL (8.5-10.1); Osmolality,Calculated 314.8 MOS/KG (273-304)
[2020-05-29 06:20] LABS: Basophils % 0.3 % (0.0-0.8); Eosinophils # 0.2 10*3/uL (0.0-0.87); Eosinophils % 2.2 % (0.00-10.9); Hemoglobin 9.1 GM/DL (14.0-18.0); Immature Granulocytes % 0.6 %; Immature Granulocytes Absolute 0.06 #; Lymphocytes # 0.8 10*3/uL (1.4-4.0); Lymphocytes % 7.3 % (21.2-54.2); Mean Corpuscular HGB Conc 31.4 GM/DL (32-36); Mean Platelet Volume 10.6 FL (9.6-12.0); Neutrophils % 81.6 % (38.7-73.9); Platelet Count 260 T/CUMM (130-400); Red Blood Count 3.02 MC/CUMM (3.8-5.5); Red Cell Distribution Width 15.1 % (9.3-17.3); White Blood Count 10.5 T/CUMM (4-12)
[2020-05-29] MEDS: ASPIRIN CHEW 81 MG TABLET PO SCH (08:09)
[2020-05-29] MEDS: SODIUM BICARBONATE 650 MG TABLET PER TUBE SCH ×3 (08:09→21:04)
[2020-05-29] MEDS: METOPROLOL TARTRATE 25 MG TABLET PO SCH (08:09)
[2020-05-29] MEDS: PANTOPRAZOLE 40 MG VIAL IV SCH (08:09)
[2020-05-29] MEDS: SODIUM CHLORIDE 0.9% 1,000 ML IV SCH (09:54)
[2020-05-29] MEDS: DEXMEDETOMIDINE 200 MCG in SODIUM CHLORIDE 0.9% 48 ML IV PRN (11:16)
[2020-05-29] MEDS: ATORVASTATIN 40 MG TABLET PO SCH (21:03)
[2020-05-30 04:55] LABS: ABG Base Excess -1.8 MMOL/L (-2.5-2.5); ABG HCO3 22.9 MMOL/L (20-26); ABG Oxygen Saturation 97.6 % (95-100); ABG PCO2 35.7 MM HG (35-48); ABG PH 7.406 (7.35-7.45); ABG PO2 92.5 MM HG (80-95); ABG TCO2 20.6 MMOL/L (23-27)
[2020-05-30] MEDS: SODIUM CHLORIDE 0.9% 1,000 ML IV SCH (05:22)
[2020-05-30] MEDS: DEXMEDETOMIDINE 200 MCG in SODIUM CHLORIDE 0.9% 48 ML IV PRN (05:22)
[2020-05-30 05:45] LABS: Basophils % 0.3 % (0.0-0.8); Eosinophils # 0.3 10*3/uL (0.0-0.87); Eosinophils % 2.3 % (0.00-10.9); Hematocrit 30.1 VOL% (42.0-52.0); Hemoglobin 9.4 GM/DL (14.0-18.0); Immature Granulocytes % 0.7 %; Immature Granulocytes Absolute 0.08 #; Mean Corpuscular HGB Conc 31.2 GM/DL (32-36); Mean Corpuscular Volume 97.1 FL (87-102); Mean Platelet Volume 10.2 FL (9.6-12.0); Monocytes % 8.4 % (1.7-12.7); Neutrophils % 79.3 % (38.7-73.9); Platelet Count 310 T/CUMM (130-400); Red Cell Distribution Width 15.2 % (9.3-17.3)
[2020-05-30 05:59] LABS: Osmolality,Calculated 323.3 MOS/KG (273-304)
[2020-05-30] MEDS: SODIUM BICARBONATE 650 MG TABLET PER TUBE SCH ×3 (09:46→20:18)
[2020-05-30] MEDS: METOPROLOL TARTRATE 25 MG TABLET PO SCH (09:46)
[2020-05-30] MEDS: ASPIRIN CHEW 81 MG TABLET PO SCH (09:46)
[2020-05-30] MEDS: PANTOPRAZOLE 40 MG VIAL IV SCH (09:47)
[2020-05-30] MEDS: methylPREDNISolone SOD SUC 40 MG/1 ML VIAL IV SCH (15:56)
[2020-05-30] MEDS: ATORVASTATIN 40 MG TABLET PO SCH (20:18)
[2020-05-31] MEDS: methylPREDNISolone SOD SUC 40 MG/1 ML VIAL IV SCH ×4 (00:10→22:12)
[2020-05-31] MEDS: SODIUM CHLORIDE 0.9% 1,000 ML IV SCH ×2 (02:15→23:06)
[2020-05-31 04:22] LABS: Basophils % 0.1 % (0.0-0.8); Calcium 8.8 MG/DL (8.5-10.1); Hematocrit 30.2 VOL% (42.0-52.0); Hemoglobin 9.5 GM/DL (14.0-18.0); Immature Granulocytes % 0.7 %; Immature Granulocytes Absolute 0.07 #; Lymphocytes # 0.3 10*3/uL (1.4-4.0); Lymphocytes % 3.2 % (21.2-54.2); Mean Corpuscular HGB Conc 31.5 GM/DL (32-36); Mean Corpuscular Volume 95.9 FL (87-102); Mean Platelet Volume 10.1 FL (9.6-12.0); Monocytes % 0.8 % (1.7-12.7); Neutrophils % 95.2 % (38.7-73.9); Osmolality,Calculated 326.3 MOS/KG (273-304); Platelet Count 348 T/CUMM (130-400); Red Blood Count 3.15 MC/CUMM (3.8-5.5); Red Cell Distribution Width 14.6 % (9.3-17.3); White Blood Count 10.7 T/CUMM (4-12)
[2020-05-31 04:24] LABS: ABG Base Excess -3.3 MMOL/L (-2.5-2.5); ABG HCO3 21.3 MMOL/L (20-26); ABG Oxygen Saturation 97.6 % (95-100); ABG PCO2 36.2 MM HG (35-48); ABG PH 7.387 (7.35-7.45); ABG PO2 107.3 MM HG (80-95); ABG TCO2 22.4 MMOL/L (23-27); Allen Test Positive; Pt O2 Delivery Device Ventilator
[2020-05-31 05:50] LABS: Band Neutrophils 3 % (0-10); Lymphocytes 3 % (20-55); Platelet Estimate Normal; Segmented Neutrophils 94 % (50-85); Total Cells Counted 100
[2020-05-31] MEDS: PANTOPRAZOLE 40 MG VIAL IV SCH (09:18)
[2020-05-31] MEDS: ASPIRIN CHEW 81 MG TABLET PO SCH (09:18)
[2020-05-31] MEDS: METOPROLOL TARTRATE 25 MG TABLET PO SCH (09:18)
[2020-05-31] MEDS: SODIUM BICARBONATE 650 MG TABLET PER TUBE SCH ×3 (09:19→19:59)
[2020-05-31] MEDS: INSULIN LISPRO 100 UNIT/ML SUBCUT SCH ×3 (12:27→23:11)
[2020-05-31] MEDS: DEXMEDETOMIDINE 200 MCG in SODIUM CHLORIDE 0.9% 48 ML IV PRN (13:15)
[2020-05-31] MEDS: ATORVASTATIN 40 MG TABLET PO SCH (19:59)
[2020-06-01 04:13] LABS: Basophils % 0.1 % (0.0-0.8); Hematocrit 30.4 VOL% (42.0-52.0); Hemoglobin 9.6 GM/DL (14.0-18.0); Immature Granulocytes % 0.5 %; Immature Granulocytes Absolute 0.06 #; Lymphocytes # 0.6 10*3/uL (1.4-4.0); Lymphocytes % 4.4 % (21.2-54.2); Mean Corpuscular HGB Conc 31.6 GM/DL (32-36); Mean Corpuscular Volume 95.6 FL (87-102); Mean Platelet Volume 10.2 FL (9.6-12.0); Monocytes % 1.8 % (1.7-12.7); Neutrophils % 93.2 % (38.7-73.9); Platelet Count 399 T/CUMM (130-400); Red Blood Count 3.18 MC/CUMM (3.8-5.5); Red Cell Distribution Width 14.3 % (9.3-17.3); White Blood Count 12.7 T/CUMM (4-12)
[2020-06-01 04:24] LABS: Calcium 8.4 MG/DL (8.5-10.1); Osmolality,Calculated 329.1 MOS/KG (273-304)
[2020-06-01 04:40] LABS: Hypochromasia Slight; Lymphocytes 4 % (20-55); Platelet Estimate Increased; Segmented Neutrophils 96 % (50-85); Total Cells Counted 100
[2020-06-01 04:48] LABS: Allen Test Positive; Pt O2 Delivery Device Ventilator
[2020-06-01 04:57] LABS: ABG Base Excess -1.4 MMOL/L (-2.5-2.5); ABG HCO3 23.3 MMOL/L (20-26); ABG Oxygen Saturation 99.1 % (95-100); ABG TCO2 20.8 MMOL/L (23-27)
[2020-06-01] MEDS: DEXMEDETOMIDINE 200 MCG in SODIUM CHLORIDE 0.9% 48 ML IV PRN ×2 (05:56→17:15)
[2020-06-01] MEDS: INSULIN LISPRO 100 UNIT/ML SUBCUT SCH ×3 (06:25→18:51)
[2020-06-01] MEDS: methylPREDNISolone SOD SUC 40 MG/1 ML VIAL IV SCH ×2 (06:25→16:50)
[2020-06-01] MEDS: METOPROLOL TARTRATE 25 MG TABLET PO SCH ×2 (09:23→09:26)
[2020-06-01] MEDS: SODIUM BICARBONATE 650 MG TABLET PER TUBE SCH ×3 (09:24→20:34)
[2020-06-01] MEDS: ASPIRIN CHEW 81 MG TABLET PO SCH (09:24)
[2020-06-01] MEDS: PANTOPRAZOLE 40 MG VIAL IV SCH (09:44)
[2020-06-01] MEDS ORDERED: FUROSEMIDE 40 MG/4 ML VIAL IV ONE (11:05)
[2020-06-01] MEDS: ATORVASTATIN 40 MG TABLET PO SCH (20:34)
[2020-06-02] MEDS: INSULIN LISPRO 100 UNIT/ML SUBCUT SCH ×4 (00:08→17:57)
[2020-06-02] MEDS: methylPREDNISolone SOD SUC 40 MG/1 ML VIAL IV SCH ×3 (00:08→15:32)
[2020-06-02 03:49] LABS: Basophils % 0.1 % (0.0-0.8); Hematocrit 32.4 VOL% (42.0-52.0); Hemoglobin 10.3 GM/DL (14.0-18.0); Immature Granulocytes % 0.4 %; Immature Granulocytes Absolute 0.05 #; Lymphocytes # 0.5 10*3/uL (1.4-4.0); Lymphocytes % 4.2 % (21.2-54.2); Mean Corpuscular HGB Conc 31.8 GM/DL (32-36); Mean Corpuscular Volume 94.2 FL (87-102); Monocytes % 2.1 % (1.7-12.7); Neutrophils % 93.2 % (38.7-73.9); Platelet Count 415 T/CUMM (130-400); Red Blood Count 3.44 MC/CUMM (3.8-5.5); Red Cell Distribution Width 14.3 % (9.3-17.3); White Blood Count 12.3 T/CUMM (4-12)
[2020-06-02 04:03] LABS: Calcium 8.3 MG/DL (8.5-10.1); Osmolality,Calculated 326.1 MOS/KG (273-304)
[2020-06-02 04:28] LABS: Lymphocytes 5 % (20-55); Platelet Estimate Adequate; Segmented Neutrophils 95 % (50-85); Total Cells Counted 100
[2020-06-02 04:29] LABS: Hypochromasia Slight; Microcytosis Slight
[2020-06-02 05:13] LABS: ABG Base Excess -0.8 MMOL/L (-2.5-2.5); ABG HCO3 23.8 MMOL/L (20-26); ABG Oxygen Saturation 98.7 % (95-100); ABG PCO2 36.3 MM HG (35-48); ABG PH 7.417 (7.35-7.45); ABG TCO2 21.1 MMOL/L (23-27)
[2020-06-02] MEDS: DEXMEDETOMIDINE 200 MCG in SODIUM CHLORIDE 0.9% 48 ML IV PRN (06:35)
[2020-06-02] MEDS: PANTOPRAZOLE 40 MG VIAL IV SCH (09:14)
[2020-06-02] MEDS: ASPIRIN CHEW 81 MG TABLET PO SCH (09:15)
[2020-06-02] MEDS: SODIUM BICARBONATE 650 MG TABLET PER TUBE SCH ×3 (09:15→20:45)
[2020-06-02] MEDS: METOPROLOL TARTRATE 25 MG TABLET PO SCH ×2 (09:16→11:17)
[2020-06-02] MEDS: ATORVASTATIN 40 MG TABLET PO SCH (20:45)
[2020-06-02] MEDS ORDERED: AMIODARONE 150 MG/3 ML VIAL ONE ×2 (21:42→21:45)
[2020-06-02] MEDS ORDERED: AMIODARONE 450 MG/9 ML VIAL IV ONE (21:42)
[2020-06-02] MEDS ORDERED: AMIODARONE INJ 150 MG in DEXTROSE 5% 100 ML IV ONE (22:00)
[2020-06-02] MEDS: AMIODARONE INJ 450 MG in DEXTROSE 5% 241 ML IV SCH (22:01)
[2020-06-03] MEDS ORDERED: DIGOXIN 0.5 MG/2 ML AMP IV ONE ×2 (00:14→01:15)
[2020-06-03] MEDS: INSULIN LISPRO 100 UNIT/ML SUBCUT SCH ×5 (00:33→23:45)
[2020-06-03] MEDS: methylPREDNISolone SOD SUC 40 MG/1 ML VIAL IV SCH ×3 (00:33→16:40)
[2020-06-03] MEDS ORDERED: METOPROLOL TARTRATE 5 MG/5 ML VIAL IV ONE (01:50)
[2020-06-03] MEDS ORDERED: hydrALAZINE 20 MG/1 ML VIAL ONE (01:51)
[2020-06-03] MEDS ORDERED: SOTALOL 80 MG TABLET PO ONE (02:24)
[2020-06-03 03:42] LABS: Basophils % 0.1 % (0.0-0.8); Hematocrit 36.4 VOL% (42.0-52.0); Hemoglobin 11.5 GM/DL (14.0-18.0); Immature Granulocytes % 0.6 %; Immature Granulocytes Absolute 0.13 #; Lymphocytes # 0.5 10*3/uL (1.4-4.0); Lymphocytes % 2.3 % (21.2-54.2); Mean Corpuscular HGB Conc 31.6 GM/DL (32-36); Mean Corpuscular Volume 95.5 FL (87-102); Mean Platelet Volume 9.6 FL (9.6-12.0); Monocytes % 3.8 % (1.7-12.7); Neutrophils % 93.2 % (38.7-73.9); Platelet Count 573 T/CUMM (130-400); Red Blood Count 3.81 MC/CUMM (3.8-5.5); Red Cell Distribution Width 14.3 % (9.3-17.3); White Blood Count 22.7 T/CUMM (4-12)
[2020-06-03 03:59] LABS: Calcium 8.9 MG/DL (8.5-10.1); Osmolality,Calculated 326.3 MOS/KG (273-304)
[2020-06-03 04:13] LABS: Lymphocytes 3 % (20-55); Platelet Estimate Increased; Segmented Neutrophils 96 % (50-85); Total Cells Counted 100
[2020-06-03] MEDS ORDERED: ETOMIDATE 20 MG/10 ML VIAL IV ONE ×3 (06:02→06:15)
[2020-06-03] MEDS ORDERED: SUCCINYLCHOLINE 200 MG/10 ML VIAL ONE (06:03)
[2020-06-03] MEDS ORDERED: SUCCINYLCHOLINE 200 MG/10 ML VIAL IV ONE (06:15)
[2020-06-03] MEDS: DEXMEDETOMIDINE 200 MCG in SODIUM CHLORIDE 0.9% 48 ML IV PRN (06:35)
[2020-06-03] MEDS ORDERED: SODIUM CHLORIDE 0.9% 500 ML IV ONE (06:43)
[2020-06-03 07:23] LABS: Allen Test Positive; Pt O2 Delivery Device Ventilator
[2020-06-03 07:24] LABS: ABG Base Excess -4.1 MMOL/L (-2.5-2.5); ABG Oxygen Saturation 99.6 % (95-100); ABG PCO2 50.7 MM HG (35-48); ABG PH 7.269 (7.35-7.45); ABG TCO2 21.2 MMOL/L (23-27)
[2020-06-03] MEDS: PANTOPRAZOLE 40 MG VIAL IV SCH (08:59)
[2020-06-03] MEDS: SODIUM BICARBONATE 650 MG TABLET PER TUBE SCH ×3 (08:59→20:55)
[2020-06-03] MEDS: SOTALOL 80 MG TABLET PO SCH ×2 (08:59→20:55)
[2020-06-03] MEDS: ASPIRIN CHEW 81 MG TABLET PO SCH (08:59)
[2020-06-03] MEDS: METOPROLOL TARTRATE 25 MG TABLET PO SCH (08:59)
[2020-06-03 12:05] LABS: ABG Base Excess -0.6 MMOL/L (-2.5-2.5); ABG HCO3 22.8 MMOL/L (20-26); ABG Oxygen Saturation 31.4 % (95-100); ABG PCO2 50.6 MM HG (35-48); ABG PH 7.319 (7.35-7.45); ABG TCO2 24.2 MMOL/L (23-27)
[2020-06-03 12:11] LABS: ABG PO2 21.8 MM HG (80-95)
[2020-06-03] MEDS: DEXMEDETOMIDINE 400 MCG in SODIUM CHLORIDE 0.9% 96 ML IV PRN ×2 (12:18→23:38)
[2020-06-03] MEDS: FUROSEMIDE 40 MG/4 ML VIAL IV SCH ×3 (12:19→23:45)
[2020-06-03] MEDS: AMIODARONE INJ 450 MG in DEXTROSE 5% 241 ML IV SCH (13:41)
[2020-06-03] MEDS: ATORVASTATIN 40 MG TABLET PO SCH (20:55)
[2020-06-04] MEDS: AMIODARONE INJ 450 MG in DEXTROSE 5% 241 ML IV SCH (03:55)
[2020-06-04 04:17] LABS: Basophils % 0.1 % (0.0-0.8); Hematocrit 32.8 VOL% (42.0-52.0); Hemoglobin 10.4 GM/DL (14.0-18.0); Immature Granulocytes % 0.6 %; Immature Granulocytes Absolute 0.08 #; Lymphocytes # 0.9 10*3/uL (1.4-4.0); Mean Corpuscular HGB Conc 31.7 GM/DL (32-36); Mean Corpuscular Volume 95.1 FL (87-102); Mean Platelet Volume 9.7 FL (9.6-12.0); Monocytes % 5.9 % (1.7-12.7); Neutrophils % 87.4 % (38.7-73.9); Platelet Count 383 T/CUMM (130-400); Red Blood Count 3.45 MC/CUMM (3.8-5.5); Red Cell Distribution Width 14.1 % (9.3-17.3); White Blood Count 14.1 T/CUMM (4-12)
[2020-06-04 04:48] LABS: Albumin 1.8 G/DL (3.4-5.0); Bilirubin,Direct 0.64 MG/DL (0.0-0.20); Bilirubin,Indirect 0.5 MG/DL (0.0-1.0); Bilirubin,Total 1.1 MG/DL (0.2-1.0); Calcium 8.1 MG/DL (8.5-10.1); Osmolality,Calculated 335.8 MOS/KG (273-304)
[2020-06-04] MEDS: methylPREDNISolone SOD SUC 40 MG/1 ML VIAL IV SCH ×2 (05:50→17:03)
[2020-06-04] MEDS: INSULIN LISPRO 100 UNIT/ML SUBCUT SCH ×4 (05:50→23:53)
[2020-06-04] MEDS: FUROSEMIDE 40 MG/4 ML VIAL IV SCH ×2 (05:50→08:48)
[2020-06-04] MEDS: SODIUM BICARBONATE 650 MG TABLET PER TUBE SCH ×3 (08:49→21:15)
[2020-06-04] MEDS: ASPIRIN CHEW 81 MG TABLET PO SCH (08:49)
[2020-06-04] MEDS: SOTALOL 80 MG TABLET PO SCH ×2 (08:49→21:14)
[2020-06-04] MEDS: PANTOPRAZOLE 40 MG VIAL IV SCH (08:49)
[2020-06-04] MEDS: DEXMEDETOMIDINE 400 MCG in SODIUM CHLORIDE 0.9% 96 ML IV PRN (12:55)
[2020-06-04] MEDS: ATORVASTATIN 40 MG TABLET PO SCH (21:14)
[2020-06-05 03:40] LABS: Basophils % 0.1 % (0.0-0.8); Hematocrit 32.5 VOL% (42.0-52.0); Hemoglobin 10.4 GM/DL (14.0-18.0); Immature Granulocytes % 0.7 %; Immature Granulocytes Absolute 0.09 #; Lymphocytes # 0.7 10*3/uL (1.4-4.0); Lymphocytes % 5.5 % (21.2-54.2); Mean Corpuscular Volume 93.9 FL (87-102); Mean Platelet Volume 9.5 FL (9.6-12.0); Monocytes % 5.8 % (1.7-12.7); Neutrophils % 87.9 % (38.7-73.9); Platelet Count 372 T/CUMM (130-400); Red Blood Count 3.46 MC/CUMM (3.8-5.5); Red Cell Distribution Width 14.3 % (9.3-17.3)
[2020-06-05 03:56] LABS: Calcium 8.3 MG/DL (8.5-10.1)
[2020-06-05 04:44] LABS: ABG Base Excess 1.7 MMOL/L (-2.5-2.5); ABG HCO3 25.1 MMOL/L (20-26); ABG Oxygen Saturation 98.3 % (95-100); ABG PCO2 35.3 MM HG (35-48); ABG PO2 124.6 MM HG (80-95); ABG TCO2 26.2 MMOL/L (23-27); Allen Test Positive; Pt O2 Delivery Device Ventilator
[2020-06-05] MEDS: INSULIN LISPRO 100 UNIT/ML SUBCUT SCH ×4 (05:21→23:35)
[2020-06-05] MEDS: methylPREDNISolone SOD SUC 40 MG/1 ML VIAL IV SCH ×2 (05:22→17:28)
[2020-06-05] MEDS: SODIUM BICARBONATE 650 MG TABLET PER TUBE SCH ×3 (08:23→20:00)
[2020-06-05] MEDS: ASPIRIN CHEW 81 MG TABLET PO SCH (08:23)
[2020-06-05] MEDS: PANTOPRAZOLE 40 MG VIAL IV SCH (08:23)
[2020-06-05] MEDS: SOTALOL 80 MG TABLET PO SCH ×2 (08:23→20:01)
[2020-06-05] MEDS: FUROSEMIDE 40 MG/4 ML VIAL IV SCH (08:23)
[2020-06-05] MEDS: ATORVASTATIN 40 MG TABLET PO SCH (20:01)
[2020-06-06 04:29] LABS: Basophils % 0.1 % (0.0-0.8); Hematocrit 34.6 VOL% (42.0-52.0); Hemoglobin 11.2 GM/DL (14.0-18.0); Immature Granulocytes % 0.8 %; Immature Granulocytes Absolute 0.15 #; Lymphocytes # 1.1 10*3/uL (1.4-4.0); Lymphocytes % 5.7 % (21.2-54.2); Mean Corpuscular HGB Conc 32.4 GM/DL (32-36); Mean Platelet Volume 9.5 FL (9.6-12.0); Monocytes % 6.2 % (1.7-12.7); Neutrophils % 87.2 % (38.7-73.9); Platelet Count 433 T/CUMM (130-400); Red Blood Count 3.68 MC/CUMM (3.8-5.5); Red Cell Distribution Width 14.2 % (9.3-17.3); White Blood Count 18.8 T/CUMM (4-12)
[2020-06-06] MEDS: methylPREDNISolone SOD SUC 40 MG/1 ML VIAL IV SCH ×2 (04:29→17:30)
[2020-06-06 04:48] LABS: Calcium 8.5 MG/DL (8.5-10.1); Osmolality,Calculated 320.8 MOS/KG (273-304)
[2020-06-06] MEDS: INSULIN LISPRO 100 UNIT/ML SUBCUT SCH ×3 (05:13→17:58)
[2020-06-06] MEDS: SODIUM BICARBONATE 650 MG TABLET PER TUBE SCH (10:00)
[2020-06-06] MEDS: ASPIRIN CHEW 81 MG TABLET PO SCH (10:00)
[2020-06-06] MEDS: FUROSEMIDE 40 MG/4 ML VIAL IV SCH (10:00)
[2020-06-06] MEDS: SOTALOL 80 MG TABLET PO SCH ×2 (10:00→22:17)
[2020-06-06] MEDS: PANTOPRAZOLE 40 MG VIAL IV SCH (10:11)
[2020-06-06] MEDS: ALBUTEROL/IPRATROPIUM 3 ML NEB RESP TX SCH ×2 (12:04→19:18)
[2020-06-06] MEDS: ATORVASTATIN 40 MG TABLET PO SCH (22:17)
[2020-06-07] MEDS: ALBUTEROL/IPRATROPIUM 3 ML NEB RESP TX SCH ×5 (01:00→19:45)
[2020-06-07] MEDS: INSULIN LISPRO 100 UNIT/ML SUBCUT SCH ×4 (01:53→17:14)
[2020-06-07] MEDS: methylPREDNISolone SOD SUC 40 MG/1 ML VIAL IV SCH ×2 (05:20→18:00)
[2020-06-07 05:29] LABS: Basophils % 0.2 % (0.0-0.8); Hematocrit 33.3 VOL% (42.0-52.0); Hemoglobin 10.7 GM/DL (14.0-18.0); Immature Granulocytes % 1.1 %; Immature Granulocytes Absolute 0.19 #; Lymphocytes # 1.1 10*3/uL (1.4-4.0); Lymphocytes % 6.3 % (21.2-54.2); Mean Corpuscular HGB Conc 32.1 GM/DL (32-36); Mean Corpuscular Volume 94.3 FL (87-102); Mean Platelet Volume 9.6 FL (9.6-12.0); Neutrophils % 85.4 % (38.7-73.9); Platelet Count 401 T/CUMM (130-400); Red Blood Count 3.53 MC/CUMM (3.8-5.5); Red Cell Distribution Width 14.4 % (9.3-17.3); White Blood Count 17.4 T/CUMM (4-12)
[2020-06-07 05:40] LABS: Osmolality,Calculated 311.3 MOS/KG (273-304)
[2020-06-07] MEDS: ASPIRIN CHEW 81 MG TABLET PO SCH (09:02)
[2020-06-07] MEDS: SOTALOL 80 MG TABLET PO SCH ×2 (09:02→21:19)
[2020-06-07] MEDS: FUROSEMIDE 40 MG/4 ML VIAL IV SCH (09:03)
[2020-06-07] MEDS: PANTOPRAZOLE 40 MG VIAL IV SCH (09:09)
[2020-06-07] MEDS: ACETYLCYSTEINE 20% 800 MG/4 ML VIAL RESP TX SCH ×2 (09:40→15:25)
[2020-06-07] MEDS: BUDESONIDE 0.5 MG/2 ML NEB RESP TX SCH ×2 (09:50→19:45)
[2020-06-07] MEDS ORDERED: ALBUTEROL/IPRATROPIUM 3 ML NEB RESP TX ONE (10:56)
[2020-06-07] MEDS ORDERED: ACETYLCYSTEINE 20% 800 MG/4 ML VIAL RESP TX SCH (15:00)
[2020-06-07] MEDS: ATORVASTATIN 40 MG TABLET PO SCH (21:18)
[2020-06-08] MEDS: ACETYLCYSTEINE 20% 800 MG/4 ML VIAL RESP TX SCH ×3 (00:05→15:25)
[2020-06-08] MEDS: ALBUTEROL/IPRATROPIUM 3 ML NEB RESP TX SCH ×5 (00:05→19:20)
[2020-06-08] MEDS: INSULIN LISPRO 100 UNIT/ML SUBCUT SCH ×4 (01:16→18:00)
[2020-06-08] MEDS: methylPREDNISolone SOD SUC 40 MG/1 ML VIAL IV SCH ×2 (05:00→16:23)
[2020-06-08 05:49] LABS: Basophils % 0.2 % (0.0-0.8); Hematocrit 32.8 VOL% (42.0-52.0); Hemoglobin 10.5 GM/DL (14.0-18.0); Immature Granulocytes Absolute 0.16 #; Lymphocytes # 1.2 10*3/uL (1.4-4.0); Lymphocytes % 7.5 % (21.2-54.2); Mean Corpuscular Volume 95.3 FL (87-102); Mean Platelet Volume 9.9 FL (9.6-12.0); Monocytes % 8.8 % (1.7-12.7); Neutrophils % 82.5 % (38.7-73.9); Platelet Count 344 T/CUMM (130-400); Red Blood Count 3.44 MC/CUMM (3.8-5.5); Red Cell Distribution Width 14.4 % (9.3-17.3); White Blood Count 15.9 T/CUMM (4-12)
[2020-06-08] MEDS: BUDESONIDE 0.5 MG/2 ML NEB RESP TX SCH ×2 (07:14→19:20)
[2020-06-08 07:22] LABS: Osmolality,Calculated 302.4 MOS/KG (273-304)
[2020-06-08] MEDS: SOTALOL 80 MG TABLET PO SCH ×2 (10:47→20:56)
[2020-06-08] MEDS: ASPIRIN CHEW 81 MG TABLET PO SCH (10:47)
[2020-06-08] MEDS: FUROSEMIDE 40 MG/4 ML VIAL IV SCH (10:48)
[2020-06-08] MEDS: PANTOPRAZOLE 40 MG VIAL IV SCH (10:51)
[2020-06-08] MEDS: ATORVASTATIN 40 MG TABLET PO SCH (20:56)
[2020-06-09] MEDS: ALBUTEROL/IPRATROPIUM 3 ML NEB RESP TX SCH ×6 (00:08→23:26)
[2020-06-09] MEDS: ACETYLCYSTEINE 20% 800 MG/4 ML VIAL RESP TX SCH ×4 (00:08→23:26)
[2020-06-09] MEDS: INSULIN LISPRO 100 UNIT/ML SUBCUT SCH ×4 (00:25→18:08)
[2020-06-09] MEDS: methylPREDNISolone SOD SUC 40 MG/1 ML VIAL IV SCH ×2 (06:32→16:37)
[2020-06-09] MEDS: BUDESONIDE 0.5 MG/2 ML NEB RESP TX SCH ×2 (07:14→19:50)
[2020-06-09] MEDS: SOTALOL 80 MG TABLET PO SCH ×2 (09:18→21:12)
[2020-06-09] MEDS: ASPIRIN CHEW 81 MG TABLET PO SCH (09:19)
[2020-06-09] MEDS: PANTOPRAZOLE 40 MG VIAL IV SCH (09:19)
[2020-06-09] MEDS: FUROSEMIDE 40 MG/4 ML VIAL IV SCH (09:20)
[2020-06-09] MEDS: ATORVASTATIN 40 MG TABLET PO SCH (21:13)
[2020-06-10] MEDS: INSULIN LISPRO 100 UNIT/ML SUBCUT SCH ×5 (00:06→23:44)
[2020-06-10 04:15] LABS: Basophils % 0.1 % (0.0-0.8); Hematocrit 34.3 VOL% (42.0-52.0); Hemoglobin 11.3 GM/DL (14.0-18.0); Immature Granulocytes % 0.8 %; Immature Granulocytes Absolute 0.16 #; Lymphocytes % 5.1 % (21.2-54.2); Mean Corpuscular HGB Conc 32.9 GM/DL (32-36); Mean Platelet Volume 9.9 FL (9.6-12.0); Monocytes % 7.6 % (1.7-12.7); Neutrophils % 86.4 % (38.7-73.9); Platelet Count 265 T/CUMM (130-400); Red Blood Count 3.69 MC/CUMM (3.8-5.5); Red Cell Distribution Width 14.2 % (9.3-17.3); White Blood Count 19.6 T/CUMM (4-12)
[2020-06-10 04:38] LABS: Osmolality,Calculated 291.7 MOS/KG (273-304)
[2020-06-10] MEDS: methylPREDNISolone SOD SUC 40 MG/1 ML VIAL IV SCH (05:15)
[2020-06-10] MEDS: ALBUTEROL/IPRATROPIUM 3 ML NEB RESP TX SCH ×5 (07:28→23:40)
[2020-06-10] MEDS: BUDESONIDE 0.5 MG/2 ML NEB RESP TX SCH (07:29)
[2020-06-10] MEDS: ACETYLCYSTEINE 20% 800 MG/4 ML VIAL RESP TX SCH ×3 (07:54→23:40)
[2020-06-10] MEDS: SOTALOL 80 MG TABLET PO SCH ×2 (08:46→20:54)
[2020-06-10] MEDS: ASPIRIN CHEW 81 MG TABLET PO SCH (08:47)
[2020-06-10] MEDS: FUROSEMIDE 40 MG/4 ML VIAL IV SCH (08:48)
[2020-06-10] MEDS: PANTOPRAZOLE 40 MG VIAL IV SCH (08:48)
[2020-06-10] MEDS: MEROPENEM 500 MG in SODIUM CHLORIDE 0.9% 100 ML IV SCH (20:53)
[2020-06-10] MEDS: ATORVASTATIN 40 MG TABLET PO SCH (20:54)
[2020-06-10] MEDS: DOXYCYCLINE HYCLATE 100 MG CAPSULE PO SCH (21:00)
[2020-06-11] MEDS: MEROPENEM 500 MG in SODIUM CHLORIDE 0.9% 100 ML IV SCH ×4 (04:15→21:45)
[2020-06-11] MEDS: INSULIN LISPRO 100 UNIT/ML SUBCUT SCH ×3 (06:06→18:36)
[2020-06-11] MEDS: ALBUTEROL/IPRATROPIUM 3 ML NEB RESP TX SCH ×4 (07:30→20:33)
[2020-06-11] MEDS: ACETYLCYSTEINE 20% 800 MG/4 ML VIAL RESP TX SCH ×2 (07:30→14:40)
[2020-06-11] MEDS: PANTOPRAZOLE 40 MG VIAL IV SCH (09:41)
[2020-06-11] MEDS: FUROSEMIDE 40 MG/4 ML VIAL IV SCH (09:41)
[2020-06-11] MEDS: ASPIRIN CHEW 81 MG TABLET PO SCH (09:41)
[2020-06-11] MEDS: predniSONE 20 MG TABLET PO SCH (09:41)
[2020-06-11] MEDS: SOTALOL 80 MG TABLET PO SCH ×2 (09:41→21:45)
[2020-06-11] MEDS: DOXYCYCLINE HYCLATE 100 MG CAPSULE PO SCH ×2 (09:42→21:45)
[2020-06-11 10:39] LABS: INR 1.1; PT Patient Result 12.2 SECS (9.8-11.9)
[2020-06-11 10:49] LABS: Total Protein 5.7 G/DL (6.4-8.3)
[2020-06-11 15:13] LABS: Glucose,Pleural Fluid 175 MG/DL; LDH,Body Fluid 170 U/L; Total Protein,Body Fluid 2.1 G/DL
[2020-06-11 16:23] LABS: RBC,Pleural Fluid 45945 T/CUMM
[2020-06-11 18:40] LABS: Lymphocytes,Pleural Fluid 66 %; Monocytes,Pleural Fluid 7 %; Neutrophils,Pleural Fluid 27 %
[2020-06-11] MEDS: ATORVASTATIN 40 MG TABLET PO SCH (21:45)
[2020-06-12] MEDS: ALBUTEROL/IPRATROPIUM 3 ML NEB RESP TX SCH ×3 (00:45→10:55)
[2020-06-12] MEDS: ACETYLCYSTEINE 20% 800 MG/4 ML VIAL RESP TX SCH ×2 (00:45→07:08)
[2020-06-12] MEDS: INSULIN LISPRO 100 UNIT/ML SUBCUT SCH ×3 (01:08→12:44)
[2020-06-12] MEDS: MEROPENEM 500 MG in SODIUM CHLORIDE 0.9% 100 ML IV SCH ×2 (03:02→09:44)
[2020-06-12 05:55] LABS: Basophils % 0.1 % (0.0-0.8); Eosinophils % 0.1 % (0.00-10.9); Hematocrit 35.2 VOL% (42.0-52.0); Hemoglobin 11.4 GM/DL (14.0-18.0); Immature Granulocytes % 0.8 %; Immature Granulocytes Absolute 0.13 #; Lymphocytes # 1.1 10*3/uL (1.4-4.0); Lymphocytes % 6.7 % (21.2-54.2); Mean Corpuscular HGB Conc 32.4 GM/DL (32-36); Mean Corpuscular Volume 93.6 FL (87-102); Mean Platelet Volume 10.2 FL (9.6-12.0); Monocytes % 8.2 % (1.7-12.7); Neutrophils % 84.1 % (38.7-73.9); Platelet Count 189 T/CUMM (130-400); Red Blood Count 3.76 MC/CUMM (3.8-5.5); Red Cell Distribution Width 14.6 % (9.3-17.3); White Blood Count 16.2 T/CUMM (4-12)
[2020-06-12 06:23] LABS: Calcium 7.5 MG/DL (8.5-10.1); Osmolality,Calculated 290.5 MOS/KG (273-304)
[2020-06-12] MEDS: DOXYCYCLINE HYCLATE 100 MG CAPSULE PO SCH (09:30)
[2020-06-12] MEDS: ASPIRIN CHEW 81 MG TABLET PO SCH (09:30)
[2020-06-12] MEDS: predniSONE 20 MG TABLET PO SCH (09:30)
[2020-06-12] MEDS: FUROSEMIDE 40 MG/4 ML VIAL IV SCH (09:31)
[2020-06-12] MEDS: SOTALOL 80 MG TABLET PO SCH (09:31)
[2020-06-12] MEDS: PANTOPRAZOLE 40 MG VIAL IV SCH (09:44)
[2020-06-12 12:22] VITALS: BP 124/76
== END 2020-06-12 13:55 | DRG 698 ==
LOC: N.ED 16:29 → N.EDINP 05-15 06:30 → SUATTDRO 05-15 06:30 → N.ICU 05-15 16:35 → N.TELEN 05-18 15:11 → N.ICU 05-21 05:19 → N.TELES 06-06 17:28
PROVIDERS: ADMIT Internal Medicine; ATTEND Internal Medicine

== ENCOUNTER 2020-08-19 10:24 | Inpatient (IN) ==
[2020-08-19] MEDS ORDERED: SODIUM CHLORIDE 0.9% 1,000 ML IV STA (10:44)
[2020-08-19] MEDS ORDERED: ONDANSETRON 4 MG/2 ML VIAL IV STA (10:44)
[2020-08-19] MEDS ORDERED: HYDROmorphone 2 MG/1 ML VIAL IV STA (10:44)
[2020-08-19] MEDS ORDERED: HYDROmorphone 2 MG/1 ML VIAL ONE (10:46)
[2020-08-19] MEDS ORDERED: ONDANSETRON 4 MG/2 ML VIAL ONE (10:46)
[2020-08-19 11:11] LABS: Basophils % 0.2 % (0.0-0.8); Hemoglobin 11.5 GM/DL (14.0-18.0); Immature Granulocytes % 0.5 %; Immature Granulocytes Absolute 0.03 #; Lymphocytes # 0.5 10*3/uL (1.4-4.0); Lymphocytes % 8.3 % (21.2-54.2); Mean Corpuscular HGB Conc 31.9 GM/DL (32-36); Mean Corpuscular Volume 100.3 FL (87-102); Mean Platelet Volume 9.7 FL (9.6-12.0); Platelet Count 118 T/CUMM (130-400); Red Blood Count 3.59 MC/CUMM (3.8-5.5); Red Cell Distribution Width 15.3 % (9.3-17.3); White Blood Count 5.8 T/CUMM (4-12)
[2020-08-19 12:25] LABS: Osmolality,Calculated 297.1 MOS/KG (273-304)
[2020-08-19] MEDS ORDERED: SODIUM CHLORIDE 0.9% 500 ML IV STA ×2 (12:30→14:26)
[2020-08-19 12:34] LABS: Calcium 8.4 MG/DL (8.5-10.1)
[2020-08-19 13:04] LABS: CKMB % 5.1 %
[2020-08-19] MEDS: PHENYLEPHRINE DRIP 40 MG/250 ML PREMIX IV PRN ×3 (13:12→23:20)
[2020-08-19] MEDS ORDERED: ALBUTEROL/IPRATROPIUM 3 ML NEB RESP TX PRN (13:36)
[2020-08-19] MEDS ORDERED: ALBUTEROL 2.5 MG/3 ML NEB RESP TX PRN (13:38)
[2020-08-19] MEDS ORDERED: DEXTROSE 50% 25 GM/50 ML VIAL IV PRN (13:38)
[2020-08-19] MEDS ORDERED: GLUCAGON 1 MG VIAL IM PRN (13:38)
[2020-08-19] MEDS: SODIUM CHLORIDE 0.9% 1,000 ML IV SCH ×2 (14:47→21:25)
[2020-08-19] MEDS: INSULIN LISPRO 100 UNIT/ML SUBCUT SCH ×2 (17:06→20:42)
[2020-08-19 17:24] LABS: Bacteria,Urine Occasional /HPF (Few); Bilirubin,Urine Negative (Negative); Blood, Urine Small mg/dL (Negative); Glucose,Urine (UA) Negative (Negative); Hyaline Casts,Urine 14 /LPF (0-3); Ketones,Urine 5 mg/dL (Negative); Mucus,Urine Occasional /LPF (Occasional); Nitrite,Urine Negative (Negative); Protein,Urine 30 MG/DL; Urine Appearance Slightly Hazy (Clear); Urine Color Amber (Yellow); Urine Specific Gravity 1.019 (1.001-1.035); WBC,Urine 4 /HPF (0-6)
[2020-08-19] MEDS ORDERED: ATORVASTATIN 40 MG TABLET PO SCH (21:00)
[2020-08-19] MEDS ORDERED: SOTALOL 80 MG TABLET PO SCH (21:00)
[2020-08-19] MEDS: POTASSIUM CHLORIDE 8 MEQ CAPSULE PO SCH (21:25)
[2020-08-19] MEDS: SILVER SULFADIAZINE 1% CREAM 25 GM TUBE TOP SCH (21:25)
[2020-08-19] MEDS ORDERED: ETOMIDATE 20 MG/10 ML VIAL IV ONE ×2 (21:53→21:56)
[2020-08-19] MEDS ORDERED: VECURONIUM 10 MG VIAL IV ONE (21:53)
[2020-08-19] MEDS ORDERED: SUCCINYLCHOLINE 200 MG/10 ML VIAL ONE (21:55)
[2020-08-19] MEDS ORDERED: SUCCINYLCHOLINE 200 MG/10 ML VIAL IV ONE (21:56)
[2020-08-19] MEDS ORDERED: SODIUM CHLORIDE 0.9% 1,000 ML IV ONE (22:00)
[2020-08-19] MEDS ORDERED: DEXTROSE 50% 25 GM/50 ML VIAL IV ONE (22:18)
[2020-08-19] MEDS: NOREPINEPHRINE 8 MG in SODIUM CHLORIDE 0.9% 242 ML IV PRN (22:22)
[2020-08-19] MEDS: HYDROCORTISONE 100 MG VIAL IV SCH (22:22)
[2020-08-19] MEDS ORDERED: MIDAZOLAM 2 MG/2 ML VIAL ONE (22:24)
[2020-08-19 22:32] LABS: ABG Base Excess -18.3 MMOL/L (-2.5-2.5); ABG Oxygen Saturation 96.6 % (95-100); ABG PCO2 48.8 MM HG (35-48); ABG TCO2 12.3 MMOL/L (23-27)
[2020-08-19 22:32] LABS: Bilirubin,Total 2.1 MG/DL (0.2-1.0); Calcium 7.5 MG/DL (8.5-10.1); Osmolality,Calculated 303.7 MOS/KG (273-304); Total Protein 5.2 G/DL (6.4-8.3)
[2020-08-19 22:34] LABS: ABG PH 7.026 (7.35-7.45)
[2020-08-19] MEDS ORDERED: SODIUM BICARBONATE 50 MEQ/50 ML VIAL IV ONE ×3 (22:43→22:44)
[2020-08-19 22:46] LABS: Ferritin 2117.9 ng/ml (26-388)
[2020-08-19 22:52] LABS: Basophils # 0.1 10*3/uL (0.0-0.2); Basophils % 0.3 % (0.0-0.8); Hematocrit 37.5 VOL% (42.0-52.0); Hemoglobin 11.3 GM/DL (14.0-18.0); Immature Granulocytes % 2.6 %; Immature Granulocytes Absolute 0.77 #; Lymphocytes # 4.8 10*3/uL (1.4-4.0); Mean Corpuscular HGB Conc 30.1 GM/DL (32-36); Mean Corpuscular Volume 107.1 FL (87-102); Mean Platelet Volume 10.3 FL (9.6-12.0); Monocytes % 4.3 % (1.7-12.7); Neutrophils % 76.8 % (38.7-73.9); Platelet Count 129 T/CUMM (130-400); Red Cell Distribution Width 15.7 % (9.3-17.3); White Blood Count 29.9 T/CUMM (4-12)
[2020-08-19 23:01] LABS: INR 1.3; PT Patient Result 13.5 SECS (9.8-11.9)
[2020-08-19] MEDS: SODIUM BICARB INJ 150 MEQ in DEXTROSE 5% 850 ML IV SCH (23:05)
[2020-08-19] MEDS ORDERED: AMIODARONE INJ 150 MG in DEXTROSE 5% 100 ML IV ONE (23:35)
[2020-08-19 23:39] LABS: Partial Thromboplastin Time 46.6 SECS (23.9-33.8)
[2020-08-19] MEDS ORDERED: AMIODARONE INJ 450 MG in DEXTROSE 5% 241 ML IV SCH (23:45)
[2020-08-20] MEDS: MIDAZOLAM 100 MG in SODIUM CHLORIDE 0.9% 80 ML IV PRN (00:12)
[2020-08-20] MEDS: PHENYLEPHRINE DRIP 40 MG/250 ML PREMIX IV PRN ×4 (01:06→10:03)
[2020-08-20] MEDS: PIPERACILLIN/TAZOBACTAM 3,375 MG in SODIUM CHLORIDE 0.9% 100 ML IV SCH ×4 (01:15→22:06)
[2020-08-20] MEDS: NOREPINEPHRINE 8 MG in SODIUM CHLORIDE 0.9% 242 ML IV PRN ×3 (03:25→11:36)
[2020-08-20] MEDS ORDERED: EPINEPHrine 1 MG/ML VIAL ONE (03:40)
[2020-08-20] MEDS ORDERED: SODIUM BICARBONATE 50 MEQ/50 ML VIAL IV ONE (03:40)
[2020-08-20 03:42] LABS: Anisocytosis 2+; Band Neutrophils 4 % (0-10); Lymphocytes 16 % (20-55); Macrocytosis 2+; Metamyelocytes 5 %; Myelocytes 2 %; Platelet Estimate Decreased; Segmented Neutrophils 68 % (50-85); Total Cells Counted 100
[2020-08-20 04:43] LABS: ABG Base Excess -7.6 MMOL/L (-2.5-2.5); ABG HCO3 18.2 MMOL/L (20-26); ABG PCO2 44.5 MM HG (35-48); ABG PO2 80.3 MM HG (80-95); ABG TCO2 17.9 MMOL/L (23-27)
[2020-08-20 04:47] LABS: Basophils % 0.2 % (0.0-0.8); Eosinophils # 0.2 10*3/uL (0.0-0.87); Hematocrit 35.1 VOL% (42.0-52.0); Hemoglobin 11.1 GM/DL (14.0-18.0); Immature Granulocytes % 1.6 %; Immature Granulocytes Absolute 0.37 #; Lymphocytes # 1.2 10*3/uL (1.4-4.0); Lymphocytes % 4.9 % (21.2-54.2); Mean Corpuscular HGB Conc 31.6 GM/DL (32-36); Mean Corpuscular Volume 100.6 FL (87-102); Mean Platelet Volume 9.9 FL (9.6-12.0); Monocytes % 3.4 % (1.7-12.7); Neutrophils % 88.9 % (38.7-73.9); Platelet Count 153 T/CUMM (130-400); Red Blood Count 3.49 MC/CUMM (3.8-5.5); Red Cell Distribution Width 15.9 % (9.3-17.3); White Blood Count 23.7 T/CUMM (4-12)
[2020-08-20 04:56] LABS: INR 1.5; PT Patient Result 15.4 SECS (9.8-11.9)
[2020-08-20 05:11] LABS: Band Neutrophils 6 % (0-10); Hypochromasia Slight; Lymphocytes 4 % (20-55); Microcytosis Slight; Platelet Estimate Adequate; Segmented Neutrophils 86 % (50-85); Total Cells Counted 100
[2020-08-20 05:18] LABS: Calcium 6.7 MG/DL (8.5-10.1); Osmolality,Calculated 306.1 MOS/KG (273-304); Risk Ratio 2.58; VLDL CHOLESTEROL 19.6 MG/DL
[2020-08-20] MEDS: SODIUM BICARB INJ 150 MEQ in DEXTROSE 5% 850 ML IV SCH ×5 (06:15→22:07)
[2020-08-20] MEDS: HYDROCORTISONE 100 MG VIAL IV SCH ×3 (06:42→22:06)
[2020-08-20] MEDS: AMIODARONE INJ 450 MG in DEXTROSE 5% 241 ML IV SCH ×2 (07:46→23:48)
[2020-08-20] MEDS: INSULIN LISPRO 100 UNIT/ML SUBCUT SCH ×4 (07:54→22:06)
[2020-08-20] MEDS ORDERED: predniSONE 10 MG TABLET PO SCH (09:00)
[2020-08-20] MEDS: PANTOPRAZOLE 40 MG VIAL IV SCH (09:53)
[2020-08-20] MEDS: ASPIRIN CHEW 81 MG TABLET PO SCH (09:58)
[2020-08-20] MEDS: MULTIVITAMIN LIQUID (CENTRUM) 60 ML BOTTLE NG SCH (09:58)
[2020-08-20] MEDS: SILVER SULFADIAZINE 1% CREAM 25 GM TUBE TOP SCH ×3 (10:00→22:07)
[2020-08-20] MEDS: POTASSIUM CHLORIDE 8 MEQ CAPSULE PO SCH ×2 (10:00→22:05)
[2020-08-20] MEDS: CALCIUM GLUCONATE 2,000 MG in SODIUM CHLORIDE 0.9% 100 ML IV SCH ×2 (10:04→16:33)
[2020-08-20 11:59] LABS: Troponin I 60.7 NG/ML (0.00-0.045)
[2020-08-20] MEDS ORDERED: PHENYLEPHRINE INJ 160 MG in SODIUM CHLORIDE 0.9% 234 ML IV PRN (12:47)
[2020-08-20] MEDS: NOREPINEPHRINE 16 MG in SODIUM CHLORIDE 0.9% 234 ML IV PRN (16:20)
[2020-08-21] MEDS: AMIODARONE INJ 450 MG in DEXTROSE 5% 241 ML IV SCH ×2 (01:20→17:10)
[2020-08-21] MEDS: SODIUM BICARB INJ 150 MEQ in DEXTROSE 5% 850 ML IV SCH ×4 (02:27→19:37)
[2020-08-21] MEDS: NOREPINEPHRINE 16 MG in SODIUM CHLORIDE 0.9% 234 ML IV PRN (03:20)
[2020-08-21 04:17] LABS: ABG Base Excess 2.8 MMOL/L (-2.5-2.5); ABG HCO3 26.9 MMOL/L (20-26); ABG PCO2 28.7 MM HG (35-48); ABG PH 7.542 (7.35-7.45); ABG TCO2 22.2 MMOL/L (23-27)
[2020-08-21 04:33] LABS: Basophils % 0.1 % (0.0-0.8); Hematocrit 29.1 VOL% (42.0-52.0); Immature Granulocytes % 0.6 %; Immature Granulocytes Absolute 0.07 #; Lymphocytes # 0.8 10*3/uL (1.4-4.0); Lymphocytes % 6.6 % (21.2-54.2); Mean Corpuscular HGB Conc 34.4 GM/DL (32-36); Mean Corpuscular Volume 92.7 FL (87-102); Mean Platelet Volume 10.7 FL (9.6-12.0); Monocytes % 2.4 % (1.7-12.7); NRBC # 0.07 10*3/uL; Neutrophils % 90.3 % (38.7-73.9); Platelet Count 93 T/CUMM (130-400); Red Blood Count 3.14 MC/CUMM (3.8-5.5); Red Cell Distribution Width 15.5 % (9.3-17.3); White Blood Count 11.3 T/CUMM (4-12)
[2020-08-21 04:58] LABS: CKMB % 8.4 %
[2020-08-21 05:00] LABS: Band Neutrophils 3 % (0-10); Lymphocytes 10 % (20-55); Platelet Estimate Decreased; Segmented Neutrophils 81 % (50-85); Total Cells Counted 100
[2020-08-21 05:01] LABS: Hypochromasia Slight; Microcytosis Slight
[2020-08-21 05:02] LABS: Troponin I 65.6 NG/ML (0.00-0.045)
[2020-08-21 05:19] LABS: Albumin 1.4 G/DL (3.4-5.0); Bilirubin,Total 1.7 MG/DL (0.2-1.0); Calcium 6.6 MG/DL (8.5-10.1); Osmolality,Calculated 310.7 MOS/KG (273-304); Total Protein 3.8 G/DL (6.4-8.3)
[2020-08-21] MEDS: PIPERACILLIN/TAZOBACTAM 3,375 MG in SODIUM CHLORIDE 0.9% 100 ML IV SCH ×3 (06:28→21:31)
[2020-08-21] MEDS: HYDROCORTISONE 100 MG VIAL IV SCH ×3 (06:28→21:31)
[2020-08-21] MEDS: PANTOPRAZOLE 40 MG VIAL IV SCH (08:43)
[2020-08-21] MEDS: ASPIRIN CHEW 81 MG TABLET PO SCH (08:47)
[2020-08-21] MEDS: INSULIN LISPRO 100 UNIT/ML SUBCUT SCH ×4 (08:55→21:23)
[2020-08-21] MEDS: MULTIVITAMIN LIQUID (CENTRUM) 60 ML BOTTLE NG SCH (08:56)
[2020-08-21] MEDS: POTASSIUM CHLORIDE 8 MEQ CAPSULE PO SCH ×2 (08:56→21:24)
[2020-08-21] MEDS ORDERED: VANCOMYCIN INJ 1,500 MG in SODIUM CHLORIDE 0.9% 500 ML IV PRN (09:08)
[2020-08-21] MEDS ORDERED: VANCOMYCIN INJ 1,500 MG in SODIUM CHLORIDE 0.9% 500 ML IV ONE (10:00)
[2020-08-21] MEDS: SILVER SULFADIAZINE 1% CREAM 25 GM TUBE TOP SCH ×2 (11:02→21:11)
[2020-08-22] MEDS: SODIUM BICARB INJ 150 MEQ in DEXTROSE 5% 850 ML IV SCH ×2 (03:37→03:56)
[2020-08-22] MEDS: NOREPINEPHRINE 16 MG in SODIUM CHLORIDE 0.9% 234 ML IV PRN (03:37)
[2020-08-22 04:25] LABS: ABG Base Excess 5.7 MMOL/L (-2.5-2.5); ABG HCO3 27.8 MMOL/L (20-26); ABG PCO2 31.2 MM HG (35-48); ABG PH 7.568 (7.35-7.45); ABG TCO2 28.8 MMOL/L (23-27); Basophils % 0.1 % (0.0-0.8); Hematocrit 27.7 VOL% (42.0-52.0); Hemoglobin 9.4 GM/DL (14.0-18.0); Immature Granulocytes % 0.5 %; Immature Granulocytes Absolute 0.05 #; Lymphocytes # 0.6 10*3/uL (1.4-4.0); Lymphocytes % 5.5 % (21.2-54.2); Mean Corpuscular HGB Conc 33.9 GM/DL (32-36); Mean Corpuscular Volume 93.6 FL (87-102); Mean Platelet Volume 11.1 FL (9.6-12.0); Monocytes % 1.5 % (1.7-12.7); NRBC # 0.02 10*3/uL; Neutrophils % 92.4 % (38.7-73.9); Red Blood Count 2.96 MC/CUMM (3.8-5.5); Red Cell Distribution Width 15.5 % (9.3-17.3)
[2020-08-22 04:32] LABS: Platelet Count 68 T/CUMM (130-400)
[2020-08-22 04:42] LABS: Hypochromasia 1+; Microcytosis 1+; Platelet Estimate Decreased
[2020-08-22 04:53] LABS: Albumin 1.4 G/DL (3.4-5.0); Bilirubin,Total 1.1 MG/DL (0.2-1.0); Calcium 6.5 MG/DL (8.5-10.1); Total Protein 4.2 G/DL (6.4-8.3)
[2020-08-22] MEDS: AMIODARONE INJ 450 MG in DEXTROSE 5% 241 ML IV SCH ×3 (05:29→20:28)
[2020-08-22] MEDS ORDERED: SODIUM CHLORIDE 0.9% 100 ML IV ONE (05:41)
[2020-08-22] MEDS: PIPERACILLIN/TAZOBACTAM 3,375 MG in SODIUM CHLORIDE 0.9% 100 ML IV SCH (05:43)
[2020-08-22] MEDS: HYDROCORTISONE 100 MG VIAL IV SCH ×3 (05:43→23:29)
[2020-08-22] MEDS ORDERED: POTASSIUM CHLORIDE RIDER 10 MEQ in PREMIX 1 EACH IV PRN (06:29)
[2020-08-22] MEDS: POTASSIUM CHLORIDE RIDER 20 MEQ in PREMIX 1 EACH IV PRN ×3 (06:54→21:16)
[2020-08-22] MEDS: ASPIRIN CHEW 81 MG TABLET PO SCH (09:08)
[2020-08-22] MEDS: MULTIVITAMIN LIQUID (CENTRUM) 60 ML BOTTLE NG SCH (09:08)
[2020-08-22] MEDS: INSULIN LISPRO 100 UNIT/ML SUBCUT SCH ×4 (09:08→20:31)
[2020-08-22] MEDS: PANTOPRAZOLE 40 MG VIAL IV SCH (09:08)
[2020-08-22] MEDS: SILVER SULFADIAZINE 1% CREAM 25 GM TUBE TOP SCH ×2 (09:08→20:34)
[2020-08-22] MEDS: POTASSIUM CHLORIDE 8 MEQ CAPSULE PO SCH ×2 (09:08→21:17)
[2020-08-22] MEDS: cefTRIAXone 1,000 MG in SYRINGE 1 EACH IV SCH (09:08)
[2020-08-23] MEDS: AMIODARONE INJ 450 MG in DEXTROSE 5% 241 ML IV SCH ×2 (01:01→10:44)
[2020-08-23 03:56] LABS: ABG Base Excess 7.1 MMOL/L (-2.5-2.5); ABG HCO3 30.9 MMOL/L (20-26); ABG Oxygen Saturation 99.3 % (95-100); ABG PCO2 38.4 MM HG (35-48); ABG TCO2 28.2 MMOL/L (23-27)
[2020-08-23 04:16] LABS: Basophils % 0.1 % (0.0-0.8); Hematocrit 26.6 VOL% (42.0-52.0); Hemoglobin 8.9 GM/DL (14.0-18.0); Immature Granulocytes % 0.6 %; Immature Granulocytes Absolute 0.05 #; Lymphocytes # 0.8 10*3/uL (1.4-4.0); Lymphocytes % 9.4 % (21.2-54.2); Mean Corpuscular HGB Conc 33.5 GM/DL (32-36); Mean Platelet Volume 11.9 FL (9.6-12.0); Monocytes % 3.3 % (1.7-12.7); Neutrophils % 86.6 % (38.7-73.9); Platelet Count 47 T/CUMM (130-400); Red Cell Distribution Width 15.2 % (9.3-17.3); White Blood Count 8.1 T/CUMM (4-12)
[2020-08-23 04:30] LABS: Troponin I 15.4 NG/ML (0.00-0.045)
[2020-08-23 05:11] LABS: Band Neutrophils 1 % (0-10); Hypochromasia 1+; Lymphocytes 8 % (20-55); Microcytosis 1+; Ovalocytes Slight; Segmented Neutrophils 89 % (50-85); Total Cells Counted 100
[2020-08-23 05:12] LABS: Platelet Estimate Decreased
[2020-08-23 05:36] LABS: Albumin 1.3 G/DL (3.4-5.0); Bilirubin,Total 0.9 MG/DL (0.2-1.0); Calcium 6.9 MG/DL (8.5-10.1); Osmolality,Calculated 312.6 MOS/KG (273-304); Total Protein 4.1 G/DL (6.4-8.3)
[2020-08-23] MEDS: HYDROCORTISONE 100 MG VIAL IV SCH ×2 (06:20→16:11)
[2020-08-23] MEDS: SILVER SULFADIAZINE 1% CREAM 25 GM TUBE TOP SCH ×2 (08:26→22:39)
[2020-08-23] MEDS: INSULIN LISPRO 100 UNIT/ML SUBCUT SCH ×4 (08:26→22:38)
[2020-08-23] MEDS: POTASSIUM CHLORIDE 8 MEQ CAPSULE PO SCH ×2 (08:26→20:54)
[2020-08-23] MEDS: cefTRIAXone 1,000 MG in SYRINGE 1 EACH IV SCH (08:26)
[2020-08-23] MEDS: MULTIVITAMIN LIQUID (CENTRUM) 60 ML BOTTLE NG SCH (08:26)
[2020-08-23] MEDS: ASPIRIN CHEW 81 MG TABLET PO SCH (08:26)
[2020-08-23] MEDS: PANTOPRAZOLE 40 MG VIAL IV SCH (08:26)
[2020-08-23] MEDS: POTASSIUM CHLORIDE RIDER 20 MEQ in PREMIX 1 EACH IV PRN (10:17)
[2020-08-23] MEDS ORDERED: VANCOMYCIN INJ 1,500 MG in SODIUM CHLORIDE 0.9% 500 ML IV ONE (11:00)
[2020-08-23] MEDS: MIDAZOLAM 100 MG in SODIUM CHLORIDE 0.9% 80 ML IV PRN (11:38)
[2020-08-23] MEDS: AMIODARONE 200 MG TABLET PO SCH ×2 (16:45→20:53)
[2020-08-24 03:55] LABS: ABG Base Excess 7.6 MMOL/L (-2.5-2.5); ABG HCO3 28.6 MMOL/L (20-26); ABG PCO2 27.9 MM HG (35-48); ABG PO2 116.6 MM HG (80-95); ABG TCO2 29.5 MMOL/L (23-27)
[2020-08-24 04:01] LABS: ABG PH 7.629 (7.35-7.45); Basophils % 0.1 % (0.0-0.8); Hematocrit 28.6 VOL% (42.0-52.0); Hemoglobin 9.6 GM/DL (14.0-18.0); Immature Granulocytes % 1.3 %; Immature Granulocytes Absolute 0.11 #; Lymphocytes # 0.8 10*3/uL (1.4-4.0); Lymphocytes % 9.1 % (21.2-54.2); Mean Corpuscular HGB Conc 33.6 GM/DL (32-36); Mean Corpuscular Volume 94.4 FL (87-102); Mean Platelet Volume 12.7 FL (9.6-12.0); Monocytes % 2.9 % (1.7-12.7); Neutrophils % 86.6 % (38.7-73.9); Red Blood Count 3.03 MC/CUMM (3.8-5.5); Red Cell Distribution Width 15.3 % (9.3-17.3); White Blood Count 8.3 T/CUMM (4-12)
[2020-08-24 04:04] LABS: Platelet Count 54 T/CUMM (130-400)
[2020-08-24 04:15] LABS: Calcium 7.3 MG/DL (8.5-10.1); Osmolality,Calculated 316.7 MOS/KG (273-304)
[2020-08-24 04:17] LABS: Albumin 1.4 G/DL (3.4-5.0); Bilirubin,Total 0.9 MG/DL (0.2-1.0); Calcium 7.2 MG/DL (8.5-10.1); Osmolality,Calculated 314.8 MOS/KG (273-304); Total Protein 4.3 G/DL (6.4-8.3)
[2020-08-24 04:46] LABS: Hypochromasia Slight; Lymphocytes 8 % (20-55); Segmented Neutrophils 87 % (50-85); Total Cells Counted 100
[2020-08-24 04:47] LABS: Microcytosis 1+; Ovalocytes Slight; Platelet Estimate Decreased
[2020-08-24] MEDS: HYDROCORTISONE 100 MG VIAL IV SCH ×3 (06:34→21:47)
[2020-08-24] MEDS: INSULIN LISPRO 100 UNIT/ML SUBCUT SCH ×4 (08:00→21:48)
[2020-08-24] MEDS: cefTRIAXone 1,000 MG in SYRINGE 1 EACH IV SCH (09:29)
[2020-08-24] MEDS: MULTIVITAMIN LIQUID (CENTRUM) 60 ML BOTTLE NG SCH (09:30)
[2020-08-24] MEDS: POTASSIUM CHLORIDE 8 MEQ CAPSULE PO SCH ×2 (09:37→21:49)
[2020-08-24] MEDS: ASPIRIN CHEW 81 MG TABLET PO SCH (09:37)
[2020-08-24] MEDS: AMIODARONE 200 MG TABLET PO SCH ×2 (09:37→21:50)
[2020-08-24] MEDS: PANTOPRAZOLE 40 MG VIAL IV SCH (09:40)
[2020-08-24] MEDS: SILVER SULFADIAZINE 1% CREAM 25 GM TUBE TOP SCH (12:54)
[2020-08-24] MEDS: NIFEdipine 10 MG CAPSULE PO PRN (21:50)
[2020-08-25 04:40] LABS: Hematocrit 32.2 VOL% (42.0-52.0); Hemoglobin 10.6 GM/DL (14.0-18.0); Lymphocytes # 0.8 10*3/uL (1.4-4.0); Lymphocytes % 7.5 % (21.2-54.2); Mean Corpuscular HGB Conc 32.9 GM/DL (32-36); Mean Corpuscular Volume 95.5 FL (87-102); Mean Platelet Volume 11.8 FL (9.6-12.0); Monocytes % 2.4 % (1.7-12.7); Neutrophils % 89.1 % (38.7-73.9); Red Blood Count 3.37 MC/CUMM (3.8-5.5); Red Cell Distribution Width 15.1 % (9.3-17.3); White Blood Count 10.4 T/CUMM (4-12)
[2020-08-25 04:40] LABS: ABG Base Excess 7.4 MMOL/L (-2.5-2.5); ABG Oxygen Saturation 94.2 % (95-100); ABG PH 7.507 (7.35-7.45); ABG PO2 72.4 MM HG (80-95); ABG TCO2 32.2 MMOL/L (23-27)
[2020-08-25 04:43] LABS: Platelet Count 87 T/CUMM (130-400)
[2020-08-25 05:00] LABS: Calcium 7.7 MG/DL (8.5-10.1); Osmolality,Calculated 316.7 MOS/KG (273-304)
[2020-08-25 07:18] LABS: Hypochromasia 1+; Lymphocytes 7 % (20-55); Microcytosis 1+; Platelet Estimate Decreased; Segmented Neutrophils 91 % (50-85); Total Cells Counted 100
[2020-08-25] MEDS: INSULIN LISPRO 100 UNIT/ML SUBCUT SCH ×4 (08:30→19:59)
[2020-08-25] MEDS: cefTRIAXone 1,000 MG in SYRINGE 1 EACH IV SCH (09:00)
[2020-08-25] MEDS: PANTOPRAZOLE 40 MG VIAL IV SCH (09:01)
[2020-08-25] MEDS: HYDROCORTISONE 100 MG VIAL IV SCH ×2 (09:01→18:50)
[2020-08-25] MEDS: AMIODARONE 200 MG TABLET PO SCH ×2 (09:02→22:03)
[2020-08-25] MEDS: NIFEdipine 10 MG CAPSULE PO PRN ×3 (09:02→22:03)
[2020-08-25] MEDS: POTASSIUM CHLORIDE 8 MEQ CAPSULE PO SCH ×2 (09:02→22:03)
[2020-08-25] MEDS: ASPIRIN CHEW 81 MG TABLET PO SCH (09:02)
[2020-08-25] MEDS: carvediloL 6.25 MG TABLET PO SCH ×2 (09:33→22:03)
[2020-08-25] MEDS ORDERED: VANCOMYCIN INJ 1,500 MG in SODIUM CHLORIDE 0.9% 500 ML IV ONE (11:00)
[2020-08-25] MEDS: MULTIVITAMIN LIQUID (CENTRUM) 60 ML BOTTLE NG SCH (14:45)
[2020-08-25] MEDS ORDERED: diphenhydrAMINE CAP 50 MG CAPSULE PO PRN (21:57)
[2020-08-25] MEDS ORDERED: diphenhydrAMINE CAP 25 MG CAPSULE ONE (22:00)
[2020-08-25] MEDS ORDERED: diphenhydrAMINE CAP 25 MG CAPSULE PO PRN (22:30)
[2020-08-26 05:01] LABS: Basophils % 0.1 % (0.0-0.8); Eosinophils % 0.1 % (0.00-10.9); Hematocrit 31.1 VOL% (42.0-52.0); Hemoglobin 10.2 GM/DL (14.0-18.0); Immature Granulocytes % 1.3 %; Immature Granulocytes Absolute 0.13 #; Lymphocytes % 10.2 % (21.2-54.2); Mean Corpuscular HGB Conc 32.8 GM/DL (32-36); Mean Corpuscular Volume 97.5 FL (87-102); Mean Platelet Volume 11.4 FL (9.6-12.0); Monocytes % 3.6 % (1.7-12.7); Neutrophils % 84.7 % (38.7-73.9); Platelet Count 104 T/CUMM (130-400); Red Blood Count 3.19 MC/CUMM (3.8-5.5); Red Cell Distribution Width 14.8 % (9.3-17.3); White Blood Count 10.1 T/CUMM (4-12)
[2020-08-26 05:16] LABS: Calcium 7.5 MG/DL (8.5-10.1)
[2020-08-26] MEDS: HYDROCORTISONE 100 MG VIAL IV SCH (06:10)
[2020-08-26] MEDS: INSULIN LISPRO 100 UNIT/ML SUBCUT SCH ×4 (07:30→21:26)
[2020-08-26] MEDS: cefTRIAXone 1,000 MG in SYRINGE 1 EACH IV SCH (09:11)
[2020-08-26] MEDS: carvediloL 6.25 MG TABLET PO SCH ×2 (09:12→21:26)
[2020-08-26] MEDS: PANTOPRAZOLE 40 MG VIAL IV SCH (09:12)
[2020-08-26] MEDS: ASPIRIN CHEW 81 MG TABLET PO SCH (09:13)
[2020-08-26] MEDS: AMIODARONE 200 MG TABLET PO SCH ×2 (09:13→21:24)
[2020-08-26] MEDS: POTASSIUM CHLORIDE 8 MEQ CAPSULE PO SCH ×2 (09:18→21:24)
[2020-08-26] MEDS: MULTIVITAMIN (CENTRUM) TABLET NG SCH (09:20)
[2020-08-26] MEDS: RIFAMPIN 300 MG CAPSULE PO SCH ×2 (11:40→21:26)
[2020-08-26] MEDS: MULTIVITAMIN LIQUID (CENTRUM) 60 ML BOTTLE NG SCH (15:26)
[2020-08-26] MEDS: HYDROCORTISONE 10 MG TABLET PO SCH (21:24)
[2020-08-27 06:37] LABS: Eosinophils % 0.2 % (0.00-10.9); Hematocrit 31.8 VOL% (42.0-52.0); Hemoglobin 10.4 GM/DL (14.0-18.0); Immature Granulocytes % 1.3 %; Immature Granulocytes Absolute 0.13 #; Lymphocytes # 0.9 10*3/uL (1.4-4.0); Lymphocytes % 8.7 % (21.2-54.2); Mean Corpuscular HGB Conc 32.7 GM/DL (32-36); Mean Corpuscular Volume 96.4 FL (87-102); Mean Platelet Volume 11.2 FL (9.6-12.0); Monocytes % 4.3 % (1.7-12.7); Neutrophils % 85.5 % (38.7-73.9); Platelet Count 117 T/CUMM (130-400); Red Cell Distribution Width 14.5 % (9.3-17.3)
[2020-08-27 06:55] LABS: Calcium 7.6 MG/DL (8.5-10.1); Osmolality,Calculated 302.5 MOS/KG (273-304)
[2020-08-27 06:56] LABS: Hypochromasia 1+
[2020-08-27 06:57] LABS: Microcytosis 1+; Platelet Estimate Decreased
[2020-08-27] MEDS: INSULIN LISPRO 100 UNIT/ML SUBCUT SCH ×4 (09:24→20:19)
[2020-08-27] MEDS: HYDROCORTISONE 10 MG TABLET PO SCH ×2 (09:25→21:28)
[2020-08-27] MEDS: POTASSIUM CHLORIDE 8 MEQ CAPSULE PO SCH ×2 (09:25→21:29)
[2020-08-27] MEDS: carvediloL 6.25 MG TABLET PO SCH ×2 (09:25→21:28)
[2020-08-27] MEDS: MULTIVITAMIN (CENTRUM) TABLET NG SCH (09:25)
[2020-08-27] MEDS: RIFAMPIN 300 MG CAPSULE PO SCH (09:25)
[2020-08-27] MEDS: ASPIRIN CHEW 81 MG TABLET PO SCH (09:25)
[2020-08-27] MEDS: AMIODARONE 200 MG TABLET PO SCH ×2 (09:25→21:28)
[2020-08-27] MEDS: PANTOPRAZOLE 40 MG VIAL IV SCH (09:26)
[2020-08-27] MEDS: cefTRIAXone 1,000 MG in SYRINGE 1 EACH IV SCH (09:29)
[2020-08-27] MEDS: CEFTAROLINE 600 MG in SODIUM CHLORIDE 0.9% 100 ML IV SCH (16:12)
[2020-08-27] MEDS: VANCOMYCIN INJ 1,500 MG in SODIUM CHLORIDE 0.9% 500 ML IV SCH (17:19)
[2020-08-28 06:24] LABS: Basophils % 0.1 % (0.0-0.8); Eosinophils % 0.3 % (0.00-10.9); Hematocrit 29.5 VOL% (42.0-52.0); Hemoglobin 9.7 GM/DL (14.0-18.0); Immature Granulocytes % 0.8 %; Lymphocytes # 0.9 10*3/uL (1.4-4.0); Lymphocytes % 7.4 % (21.2-54.2); Mean Corpuscular HGB Conc 32.9 GM/DL (32-36); Mean Corpuscular Volume 97.4 FL (87-102); Mean Platelet Volume 10.5 FL (9.6-12.0); Monocytes % 2.9 % (1.7-12.7); Neutrophils % 88.5 % (38.7-73.9); Platelet Count 122 T/CUMM (130-400); Red Blood Count 3.03 MC/CUMM (3.8-5.5); Red Cell Distribution Width 14.7 % (9.3-17.3); White Blood Count 11.8 T/CUMM (4-12)
[2020-08-28] MEDS: CEFTAROLINE 600 MG in SODIUM CHLORIDE 0.9% 100 ML IV SCH (06:29)
[2020-08-28] MEDS: NIFEdipine 10 MG CAPSULE PO PRN (06:29)
[2020-08-28 06:56] LABS: Hypochromasia 1+; Lymphocytes 5 % (20-55); Microcytosis 1+; Segmented Neutrophils 93 % (50-85); Total Cells Counted 100
[2020-08-28 06:57] LABS: Platelet Estimate Adequate
[2020-08-28 07:09] LABS: Calcium 7.5 MG/DL (8.5-10.1); Osmolality,Calculated 303.1 MOS/KG (273-304)
[2020-08-28] MEDS: INSULIN LISPRO 100 UNIT/ML SUBCUT SCH ×4 (09:03→21:33)
[2020-08-28] MEDS: POTASSIUM CHLORIDE 8 MEQ CAPSULE PO SCH ×2 (09:03→21:33)
[2020-08-28] MEDS: ASPIRIN CHEW 81 MG TABLET PO SCH (09:03)
[2020-08-28] MEDS: HYDROCORTISONE 10 MG TABLET PO SCH ×2 (09:03→21:33)
[2020-08-28] MEDS: MULTIVITAMIN (CENTRUM) TABLET NG SCH (09:05)
[2020-08-28] MEDS: carvediloL 6.25 MG TABLET PO SCH ×2 (09:05→21:32)
[2020-08-28] MEDS: AMIODARONE 200 MG TABLET PO SCH ×2 (09:05→21:33)
[2020-08-28] MEDS: PANTOPRAZOLE 40 MG VIAL IV SCH (09:06)
[2020-08-28] MEDS: CEFTAROLINE 400 MG in SODIUM CHLORIDE 0.9% 100 ML IV SCH ×2 (14:28→22:23)
[2020-08-29] MEDS: CEFTAROLINE 400 MG in SODIUM CHLORIDE 0.9% 100 ML IV SCH ×2 (06:10→15:35)
[2020-08-29 06:37] LABS: Basophils % 0.1 % (0.0-0.8); Eosinophils % 0.2 % (0.00-10.9); Hematocrit 30.4 VOL% (42.0-52.0); Hemoglobin 9.7 GM/DL (14.0-18.0); Immature Granulocytes % 0.8 %; Immature Granulocytes Absolute 0.11 #; Lymphocytes # 1.1 10*3/uL (1.4-4.0); Lymphocytes % 8.4 % (21.2-54.2); Mean Corpuscular HGB Conc 31.9 GM/DL (32-36); Mean Corpuscular Volume 97.1 FL (87-102); Mean Platelet Volume 10.5 FL (9.6-12.0); Monocytes % 3.5 % (1.7-12.7); Platelet Count 160 T/CUMM (130-400); Red Blood Count 3.13 MC/CUMM (3.8-5.5); Red Cell Distribution Width 15.1 % (9.3-17.3); White Blood Count 13.2 T/CUMM (4-12)
[2020-08-29] MEDS: PANTOPRAZOLE 40 MG VIAL IV SCH (09:09)
[2020-08-29] MEDS: POTASSIUM CHLORIDE 8 MEQ CAPSULE PO SCH ×2 (09:10→20:55)
[2020-08-29] MEDS: carvediloL 6.25 MG TABLET PO SCH ×2 (09:10→20:55)
[2020-08-29] MEDS: ASPIRIN CHEW 81 MG TABLET PO SCH (09:10)
[2020-08-29] MEDS: HYDROCORTISONE 10 MG TABLET PO SCH ×2 (09:11→20:55)
[2020-08-29] MEDS: AMIODARONE 200 MG TABLET PO SCH ×2 (09:11→20:55)
[2020-08-29] MEDS: MULTIVITAMIN (CENTRUM) TABLET NG SCH (09:14)
[2020-08-29] MEDS: INSULIN LISPRO 100 UNIT/ML SUBCUT SCH ×4 (09:21→21:00)
[2020-08-29] MEDS: VANCOMYCIN INJ 1,500 MG in SODIUM CHLORIDE 0.9% 500 ML IV SCH (20:59)
[2020-08-30] MEDS: CEFTAROLINE 400 MG in SODIUM CHLORIDE 0.9% 100 ML IV SCH ×3 (01:18→15:52)
[2020-08-30 05:02] LABS: Basophils % 0.1 % (0.0-0.8); Eosinophils % 0.1 % (0.00-10.9); Hematocrit 29.2 VOL% (42.0-52.0); Hemoglobin 9.6 GM/DL (14.0-18.0); Immature Granulocytes % 0.7 %; Immature Granulocytes Absolute 0.08 #; Lymphocytes # 0.9 10*3/uL (1.4-4.0); Lymphocytes % 7.8 % (21.2-54.2); Mean Corpuscular HGB Conc 32.9 GM/DL (32-36); Mean Corpuscular Volume 97.7 FL (87-102); Mean Platelet Volume 10.3 FL (9.6-12.0); Neutrophils % 88.3 % (38.7-73.9); Platelet Count 153 T/CUMM (130-400); Red Blood Count 2.99 MC/CUMM (3.8-5.5); Red Cell Distribution Width 14.8 % (9.3-17.3); White Blood Count 11.2 T/CUMM (4-12)
[2020-08-30 05:21] LABS: Calcium 8.1 MG/DL (8.5-10.1); Osmolality,Calculated 303.8 MOS/KG (273-304)
[2020-08-30 05:23] LABS: Uric Acid 8.1 MG/DL (3.5-7.2)
[2020-08-30] MEDS: PANTOPRAZOLE 40 MG VIAL IV SCH (10:03)
[2020-08-30] MEDS: carvediloL 12.5 MG TABLET PO SCH ×2 (10:04→22:11)
[2020-08-30] MEDS: MULTIVITAMIN (CENTRUM) TABLET NG SCH (10:04)
[2020-08-30] MEDS: ASPIRIN CHEW 81 MG TABLET PO SCH (10:04)
[2020-08-30] MEDS: HYDROCORTISONE 10 MG TABLET PO SCH ×2 (10:04→22:11)
[2020-08-30] MEDS: AMIODARONE 200 MG TABLET PO SCH ×2 (10:04→22:11)
[2020-08-30] MEDS: INSULIN LISPRO 100 UNIT/ML SUBCUT SCH ×3 (10:06→16:02)
[2020-08-30] MEDS: POTASSIUM CHLORIDE 8 MEQ CAPSULE PO SCH ×2 (10:09→22:10)
[2020-08-31] MEDS ORDERED: PHENYLEPHRINE DRIP 40 MG/250 ML PREMIX IV ONE (00:33)
[2020-08-31] MEDS ORDERED: SODIUM BICARBONATE 50 MEQ/50 ML VIAL IV ONE ×2 (00:34→00:35)
[2020-08-31] MEDS ORDERED: SODIUM CHLORIDE 0.9% 1,000 ML IV ONE (00:34)
[2020-08-31 00:42] LABS: Basophils % 0.1 % (0.0-0.8); Eosinophils % 0.3 % (0.00-10.9); Hematocrit 29.5 VOL% (42.0-52.0); Hemoglobin 9.1 GM/DL (14.0-18.0); Immature Granulocytes % 1.5 %; Lymphocytes # 3.8 10*3/uL (1.4-4.0); Lymphocytes % 27.9 % (21.2-54.2); Mean Corpuscular HGB Conc 30.8 GM/DL (32-36); Mean Corpuscular Volume 101.7 FL (87-102); Mean Platelet Volume 10.5 FL (9.6-12.0); Monocytes % 2.8 % (1.7-12.7); Neutrophils % 67.4 % (38.7-73.9); Platelet Count 182 T/CUMM (130-400); White Blood Count 13.5 T/CUMM (4-12)
[2020-08-31] MEDS: PHENYLEPHRINE DRIP 40 MG/250 ML PREMIX IV PRN ×7 (00:42→18:05)
[2020-08-31 00:53] LABS: PT Patient Result 10.9 SECS (9.8-11.9); Partial Thromboplastin Time 25.7 SECS (23.9-33.8)
[2020-08-31] MEDS ORDERED: MIDAZOLAM 2 MG/2 ML VIAL ONE (01:04)
[2020-08-31 01:06] LABS: Troponin I 0.688 NG/ML (0.00-0.045)
[2020-08-31] MEDS ORDERED: MIDAZOLAM 2 MG/2 ML VIAL IV ONE ×2 (01:06→01:20)
[2020-08-31 01:07] LABS: Albumin 1.4 G/DL (3.4-5.0); Bilirubin,Total 0.6 MG/DL (0.2-1.0); Calcium 8.5 MG/DL (8.5-10.1); Osmolality,Calculated 313.3 MOS/KG (273-304); Total Protein 4.8 G/DL (6.4-8.3)
[2020-08-31] MEDS: INSULIN LISPRO 100 UNIT/ML SUBCUT SCH ×5 (01:22→23:11)
[2020-08-31] MEDS: CEFTAROLINE 400 MG in SODIUM CHLORIDE 0.9% 100 ML IV SCH ×2 (02:07→05:57)
[2020-08-31 02:09] LABS: ABG Base Excess 3.3 MMOL/L (-2.5-2.5); ABG HCO3 27.3 MMOL/L (20-26); ABG Oxygen Saturation 94.4 % (95-100); ABG PCO2 44.5 MM HG (35-48); ABG PH 7.411 (7.35-7.45); ABG PO2 71.1 MM HG (80-95)
[2020-08-31] MEDS: ALBUMIN 25% 25 GM in PREMIX 1 EACH IV SCH ×2 (04:47→13:01)
[2020-08-31 05:19] LABS: ABG Base Excess 2.6 MMOL/L (-2.5-2.5); ABG HCO3 26.6 MMOL/L (20-26); ABG Oxygen Saturation 90.5 % (95-100); ABG PCO2 39.1 MM HG (35-48); ABG PH 7.444 (7.35-7.45); ABG PO2 57.8 MM HG (80-95); ABG TCO2 24.5 MMOL/L (23-27); Allen Test Positive; Pt O2 Delivery Device Ventilator
[2020-08-31] MEDS ORDERED: FUROSEMIDE 40 MG/4 ML VIAL IV ONE (05:40)
[2020-08-31 05:48] LABS: Basophils % 0.1 % (0.0-0.8); Hemoglobin 9.4 GM/DL (14.0-18.0); Immature Granulocytes % 0.9 %; Immature Granulocytes Absolute 0.21 #; Lymphocytes # 0.9 10*3/uL (1.4-4.0); Lymphocytes % 3.9 % (21.2-54.2); Mean Corpuscular HGB Conc 31.3 GM/DL (32-36); Mean Platelet Volume 10.5 FL (9.6-12.0); Monocytes % 4.7 % (1.7-12.7); Neutrophils % 90.4 % (38.7-73.9); Platelet Count 246 T/CUMM (130-400); White Blood Count 23.6 T/CUMM (4-12)
[2020-08-31 06:09] LABS: Osmolality,Calculated 314.1 MOS/KG (273-304)
[2020-08-31 06:16] LABS: Band Neutrophils 2 % (0-10); Lymphocytes 4 % (20-55); Segmented Neutrophils 91 % (50-85); Total Cells Counted 100
[2020-08-31 06:17] LABS: Hypochromasia Slight
[2020-08-31 06:18] LABS: Microcytosis 1+
[2020-08-31 06:19] LABS: Ovalocytes Slight
[2020-08-31 06:20] LABS: Platelet Estimate Normal
[2020-08-31 08:04] LABS: Bacteria,Urine Occasional /HPF (Few); Bilirubin,Urine Negative (Negative); Blood, Urine Moderate mg/dL (Negative); Glucose,Urine (UA) Negative (Negative); Ketones,Urine Negative (Negative); Nitrite,Urine Negative (Negative); Protein,Urine 30 MG/DL; RBC,Urine 14 /HPF (0-4); Urine Appearance CLOUDY (Clear); Urine Color Yellow (Yellow); Urine Specific Gravity 1.009 (1.001-1.035); Urine Urobilinogen < 2.0 EU/DL (0.2-1.0); WBC,Urine 6 /HPF (0-6)
[2020-08-31] MEDS: carvediloL 12.5 MG TABLET PO SCH ×2 (08:09→21:17)
[2020-08-31] MEDS: HYDROCORTISONE 10 MG TABLET PO SCH ×2 (10:23→21:00)
[2020-08-31] MEDS: AMIODARONE 200 MG TABLET PO SCH ×2 (10:23→21:17)
[2020-08-31] MEDS: MULTIVITAMIN (CENTRUM) TABLET NG SCH (10:23)
[2020-08-31] MEDS: POTASSIUM CHLORIDE 8 MEQ CAPSULE PO SCH ×2 (10:23→21:01)
[2020-08-31] MEDS: PANTOPRAZOLE 40 MG VIAL IV SCH (10:24)
[2020-08-31] MEDS: ASPIRIN CHEW 81 MG TABLET PO SCH (10:24)
[2020-08-31] MEDS: PHENYLEPHRINE INJ 160 MG in SODIUM CHLORIDE 0.9% 234 ML IV PRN (21:38)
[2020-08-31] MEDS: VANCOMYCIN INJ 1,500 MG in SODIUM CHLORIDE 0.9% 500 ML IV SCH (22:33)
[2020-08-31] MEDS ORDERED: VANCOMYCIN INJ 1,500 MG in SODIUM CHLORIDE 0.9% 500 ML IV PRN (23:04)
[2020-09-01 04:36] LABS: ABG Base Excess 2.1 MMOL/L (-2.5-2.5); ABG HCO3 26.9 MMOL/L (20-26); ABG Oxygen Saturation 98.3 % (95-100); ABG PCO2 42.8 MM HG (35-48); ABG PH 7.416 (7.35-7.45); ABG PO2 153.2 MM HG (80-95); ABG TCO2 28.2 MMOL/L (23-27); Allen Test Positive; Pt O2 Delivery Device Ventilator
[2020-09-01 05:28] LABS: Basophils % 0.1 % (0.0-0.8); Eosinophils % 0.1 % (0.00-10.9); Immature Granulocytes % 0.8 %; Immature Granulocytes Absolute 0.12 #; Lymphocytes # 1.5 10*3/uL (1.4-4.0); Lymphocytes % 9.9 % (21.2-54.2); Mean Corpuscular HGB Conc 31.8 GM/DL (32-36); Mean Corpuscular Volume 100.9 FL (87-102); Mean Platelet Volume 10.7 FL (9.6-12.0); Monocytes % 5.5 % (1.7-12.7); Neutrophils % 83.6 % (38.7-73.9); Red Cell Distribution Width 15.5 % (9.3-17.3)
[2020-09-01 05:50] LABS: Red Blood Count 2.18 MC/CUMM (3.8-5.5)
[2020-09-01 05:51] LABS: Platelet Count 149 T/CUMM (130-400)
[2020-09-01 05:53] LABS: Bilirubin,Direct 0.3 MG/DL (0.0-0.20); Bilirubin,Indirect 0.4 MG/DL (0.0-1.0); Bilirubin,Total 0.7 MG/DL (0.2-1.0); Calcium 7.8 MG/DL (8.5-10.1); Osmolality,Calculated 316.1 MOS/KG (273-304); Total Protein 4.5 G/DL (6.4-8.3)
[2020-09-01] MEDS: INSULIN LISPRO 100 UNIT/ML SUBCUT SCH ×4 (05:56→23:47)
[2020-09-01] MEDS: POTASSIUM CHLORIDE RIDER 20 MEQ in PREMIX 1 EACH IV PRN (06:39)
[2020-09-01] MEDS ORDERED: SODIUM CHLORIDE 0.9% 1,000 ML IV PRN (07:37)
[2020-09-01] MEDS: AMIODARONE 200 MG TABLET PO SCH ×2 (08:20→21:57)
[2020-09-01] MEDS: carvediloL 12.5 MG TABLET PO SCH ×2 (08:21→21:57)
[2020-09-01] MEDS: POTASSIUM CHLORIDE 8 MEQ CAPSULE PO SCH ×2 (08:43→21:49)
[2020-09-01] MEDS: ASPIRIN CHEW 81 MG TABLET PO SCH (08:43)
[2020-09-01] MEDS: MULTIVITAMIN (CENTRUM) TABLET NG SCH (08:43)
[2020-09-01] MEDS: HYDROCORTISONE 10 MG TABLET PO SCH ×2 (08:44→21:49)
[2020-09-01] MEDS: PANTOPRAZOLE 40 MG VIAL IV SCH (08:46)
[2020-09-01] MEDS: DEXTROSE 5% 1,000 ML IV SCH (10:40)
[2020-09-01] MEDS: VANCOMYCIN INJ 1,250 MG in SODIUM CHLORIDE 0.9% 250 ML IV SCH (12:43)
[2020-09-01 15:16] LABS: Hematocrit 24.7 VOL% (42.0-52.0); Hemoglobin 7.9 GM/DL (14.0-18.0)
[2020-09-01] MEDS: MEROPENEM 500 MG in SODIUM CHLORIDE 0.9% 100 ML IV SCH (17:25)
[2020-09-01] MEDS ORDERED: FLUCONAZOLE INJ 400 MG in PREMIX 1 EACH IV SCH (18:30)
[2020-09-02] MEDS: MEROPENEM 500 MG in SODIUM CHLORIDE 0.9% 100 ML IV SCH ×3 (03:04→16:18)
[2020-09-02 04:44] LABS: Allen Test Positive; Pt O2 Delivery Device Ventilator
[2020-09-02 04:49] LABS: ABG Base Excess 1.4 MMOL/L (-2.5-2.5); ABG HCO3 25.7 MMOL/L (20-26); ABG Oxygen Saturation 97.7 % (95-100); ABG PH 7.436 (7.35-7.45); ABG TCO2 26.9 MMOL/L (23-27)
[2020-09-02 05:40] LABS: Basophils % 0.1 % (0.0-0.8); Eosinophils % 0.3 % (0.00-10.9); Hematocrit 24.7 VOL% (42.0-52.0); Immature Granulocytes % 1.3 %; Lymphocytes # 1.2 10*3/uL (1.4-4.0); Lymphocytes % 7.8 % (21.2-54.2); Mean Corpuscular HGB Conc 32.4 GM/DL (32-36); Mean Corpuscular Volume 99.6 FL (87-102); Monocytes % 4.3 % (1.7-12.7); NRBC # 0.06 10*3/uL; Neutrophils % 86.2 % (38.7-73.9); Platelet Count 139 T/CUMM (130-400); Red Blood Count 2.48 MC/CUMM (3.8-5.5); Red Cell Distribution Width 16.2 % (9.3-17.3); White Blood Count 15.3 T/CUMM (4-12)
[2020-09-02 05:57] LABS: Calcium 7.9 MG/DL (8.5-10.1); Osmolality,Calculated 318.3 MOS/KG (273-304)
[2020-09-02] MEDS: INSULIN LISPRO 100 UNIT/ML SUBCUT SCH ×3 (06:38→18:08)
[2020-09-02] MEDS: DEXTROSE 5% 1,000 ML IV SCH (08:23)
[2020-09-02] MEDS: AMIODARONE 200 MG TABLET PO SCH ×2 (08:30→21:17)
[2020-09-02] MEDS: carvediloL 12.5 MG TABLET PO SCH ×2 (08:31→21:17)
[2020-09-02] MEDS: PANTOPRAZOLE 40 MG VIAL IV SCH (09:31)
[2020-09-02] MEDS: ASPIRIN CHEW 81 MG TABLET PO SCH (09:32)
[2020-09-02] MEDS: MULTIVITAMIN (CENTRUM) TABLET NG SCH (09:32)
[2020-09-02] MEDS: POTASSIUM CHLORIDE 8 MEQ CAPSULE PO SCH ×2 (09:32→20:37)
[2020-09-02] MEDS: HYDROCORTISONE 10 MG TABLET PO SCH ×2 (09:33→20:37)
[2020-09-02] MEDS ORDERED: LEVOFLOXACIN INJ 750 MG in PREMIX 1 EACH IV ONE (10:00)
[2020-09-02 10:25] LABS: Hematocrit 24.5 VOL% (42.0-52.0); Hemoglobin 7.9 GM/DL (14.0-18.0)
[2020-09-02] MEDS: MICAFUNGIN 100 MG in SODIUM CHLORIDE 0.9% 100 ML IV SCH (10:26)
[2020-09-02] MEDS ORDERED: FUROSEMIDE 40 MG/4 ML VIAL IV ONE (12:50)
[2020-09-02] MEDS ORDERED: FUROSEMIDE 100 MG/10 ML VIAL IV SCH (16:00)
[2020-09-02] MEDS: FUROSEMIDE 40 MG/4 ML VIAL IV SCH (16:13)
[2020-09-03] MEDS: INSULIN LISPRO 100 UNIT/ML SUBCUT SCH ×4 (01:16→18:49)
[2020-09-03] MEDS: MEROPENEM 500 MG in SODIUM CHLORIDE 0.9% 100 ML IV SCH ×3 (01:58→16:45)
[2020-09-03 04:00] LABS: ABG Base Excess 2.9 MMOL/L (-2.5-2.5); ABG PCO2 38.7 MM HG (35-48); ABG TCO2 25.3 MMOL/L (23-27); Allen Test Positive; Pt O2 Delivery Device Ventilator
[2020-09-03 05:24] LABS: Basophils % 0.1 % (0.0-0.8); Eosinophils % 0.2 % (0.00-10.9); Hematocrit 23.3 VOL% (42.0-52.0); Hemoglobin 7.4 GM/DL (14.0-18.0); Immature Granulocytes % 1.5 %; Immature Granulocytes Absolute 0.16 #; Lymphocytes # 0.8 10*3/uL (1.4-4.0); Lymphocytes % 7.8 % (21.2-54.2); Mean Corpuscular HGB Conc 31.8 GM/DL (32-36); Mean Corpuscular Volume 100.4 FL (87-102); Mean Platelet Volume 11.1 FL (9.6-12.0); Monocytes % 3.2 % (1.7-12.7); NRBC # 0.03 10*3/uL; Neutrophils % 87.2 % (38.7-73.9); Platelet Count 136 T/CUMM (130-400); Red Blood Count 2.32 MC/CUMM (3.8-5.5); Red Cell Distribution Width 16.1 % (9.3-17.3); White Blood Count 10.5 T/CUMM (4-12)
[2020-09-03 05:53] LABS: Albumin 1.5 G/DL (3.4-5.0); Bilirubin,Direct 0.39 MG/DL (0.0-0.20); Bilirubin,Indirect 0.6 MG/DL (0.0-1.0); Calcium 7.6 MG/DL (8.5-10.1); Osmolality,Calculated 318.1 MOS/KG (273-304); Total Protein 4.5 G/DL (6.4-8.3)
[2020-09-03] MEDS: POTASSIUM CHLORIDE RIDER 20 MEQ in PREMIX 1 EACH IV PRN (06:14)
[2020-09-03] MEDS: POTASSIUM CHLORIDE 8 MEQ CAPSULE PO SCH ×2 (10:07→21:05)
[2020-09-03] MEDS: HYDROCORTISONE 10 MG TABLET PO SCH ×2 (10:07→21:05)
[2020-09-03] MEDS: MULTIVITAMIN (CENTRUM) TABLET NG SCH (10:07)
[2020-09-03] MEDS: ASPIRIN CHEW 81 MG TABLET PO SCH (10:07)
[2020-09-03] MEDS: PANTOPRAZOLE 40 MG VIAL IV SCH (10:08)
[2020-09-03] MEDS: FUROSEMIDE 40 MG/4 ML VIAL IV SCH ×2 (10:08→16:55)
[2020-09-03] MEDS: AMIODARONE 200 MG TABLET PO SCH ×2 (10:08→21:05)
[2020-09-03] MEDS: carvediloL 12.5 MG TABLET PO SCH ×2 (10:08→21:05)
[2020-09-03] MEDS: MICAFUNGIN 100 MG in SODIUM CHLORIDE 0.9% 100 ML IV SCH (10:19)
[2020-09-03] MEDS: ALBUMIN 25% 25 GM in PREMIX 1 EACH IV SCH ×2 (10:19→20:59)
[2020-09-03] MEDS: VANCOMYCIN INJ 1,250 MG in SODIUM CHLORIDE 0.9% 250 ML IV SCH (12:10)
[2020-09-03] MEDS ORDERED: CALCIUM GLUCONATE 1,000 MG in SODIUM CHLORIDE 0.9% 100 ML IV ONE (17:00)
[2020-09-04] MEDS: INSULIN LISPRO 100 UNIT/ML SUBCUT SCH ×5 (00:03→23:52)
[2020-09-04] MEDS: MEROPENEM 500 MG in SODIUM CHLORIDE 0.9% 100 ML IV SCH ×3 (01:41→16:01)
[2020-09-04 03:33] LABS: ABG Base Excess 4.3 MMOL/L (-2.5-2.5); ABG HCO3 28.4 MMOL/L (20-26); ABG Oxygen Saturation 99.6 % (95-100); ABG PCO2 38.7 MM HG (35-48); ABG PH 7.471 (7.35-7.45); ABG TCO2 27.2 MMOL/L (23-27); Allen Test Positive; Pt O2 Delivery Device Ventilator
[2020-09-04 05:08] LABS: Basophils % 0.1 % (0.0-0.8); Eosinophils % 0.3 % (0.00-10.9); Hematocrit 18.8 VOL% (42.0-52.0); Immature Granulocytes % 1.6 %; Immature Granulocytes Absolute 0.11 #; Lymphocytes # 0.7 10*3/uL (1.4-4.0); Lymphocytes % 9.4 % (21.2-54.2); Mean Corpuscular HGB Conc 30.3 GM/DL (32-36); Mean Corpuscular Volume 104.4 FL (87-102); Mean Platelet Volume 10.8 FL (9.6-12.0); Monocytes % 3.4 % (1.7-12.7); NRBC # 0.03 10*3/uL; Neutrophils % 85.2 % (38.7-73.9); Platelet Count 114 T/CUMM (130-400)
[2020-09-04 05:15] LABS: White Blood Count 7.1 T/CUMM (4-12)
[2020-09-04 05:17] LABS: Hemoglobin 5.7 GM/DL (14.0-18.0)
[2020-09-04] MEDS ORDERED: SODIUM CHLORIDE 0.9% 1,000 ML IV PRN (08:44)
[2020-09-04] MEDS ORDERED: CALCIUM GLUCONATE 1,000 MG in SODIUM CHLORIDE 0.9% 100 ML IV ONE (09:00)
[2020-09-04] MEDS: ASPIRIN CHEW 81 MG TABLET PO SCH (09:58)
[2020-09-04] MEDS: MULTIVITAMIN (CENTRUM) TABLET NG SCH (09:58)
[2020-09-04] MEDS: AMIODARONE 200 MG TABLET PO SCH ×2 (09:58→21:38)
[2020-09-04] MEDS: POTASSIUM CHLORIDE 8 MEQ CAPSULE PO SCH ×2 (09:58→21:38)
[2020-09-04] MEDS: HYDROCORTISONE 10 MG TABLET PO SCH ×2 (09:58→21:38)
[2020-09-04] MEDS: carvediloL 12.5 MG TABLET PO SCH ×2 (09:59→21:39)
[2020-09-04] MEDS: PANTOPRAZOLE 40 MG VIAL IV SCH (09:59)
[2020-09-04] MEDS: FUROSEMIDE 40 MG/4 ML VIAL IV SCH ×2 (09:59→15:56)
[2020-09-04] MEDS: ALBUMIN 25% 25 GM in PREMIX 1 EACH IV SCH ×2 (10:00→21:37)
[2020-09-04] MEDS ORDERED: LEVOFLOXACIN INJ 750 MG in PREMIX 1 EACH IV ONE ×2 (10:00→11:00)
[2020-09-04 10:35] LABS: Basophils % 0.2 % (0.0-0.8); Eosinophils # 0.1 10*3/uL (0.0-0.87); Eosinophils % 0.9 % (0.00-10.9); Hematocrit 18.1 VOL% (42.0-52.0); Immature Granulocytes % 1.7 %; Immature Granulocytes Absolute 0.11 #; Lymphocytes # 0.8 10*3/uL (1.4-4.0); Lymphocytes % 13.3 % (21.2-54.2); Mean Corpuscular HGB Conc 30.4 GM/DL (32-36); Mean Corpuscular Volume 105.2 FL (87-102); Mean Platelet Volume 10.8 FL (9.6-12.0); Monocytes % 4.3 % (1.7-12.7); NRBC # 0.02 10*3/uL; Neutrophils % 79.6 % (38.7-73.9); Platelet Count 116 T/CUMM (130-400); Red Blood Count 1.72 MC/CUMM (3.8-5.5); Red Cell Distribution Width 16.2 % (9.3-17.3); White Blood Count 6.3 T/CUMM (4-12)
[2020-09-04 10:38] LABS: Hemoglobin 5.5 GM/DL (14.0-18.0)
[2020-09-04] MEDS: MICAFUNGIN 100 MG in SODIUM CHLORIDE 0.9% 100 ML IV SCH (10:49)
[2020-09-04] MEDS: PHENYLEPHRINE INJ 160 MG in SODIUM CHLORIDE 0.9% 234 ML IV PRN (11:39)
[2020-09-04 12:42] LABS: ABG Base Excess 1.3 MMOL/L (-2.5-2.5); ABG HCO3 25.5 MMOL/L (20-26); ABG Oxygen Saturation 94.9 % (95-100); ABG PCO2 52.3 MM HG (35-48); ABG PH 7.329 (7.35-7.45); ABG PO2 73.4 MM HG (80-95); ABG TCO2 26.4 MMOL/L (23-27)
[2020-09-04 16:10] LABS: ABG Base Excess 0.7 MMOL/L (-2.5-2.5); ABG PCO2 64.2 MM HG (35-48); ABG PH 7.263 (7.35-7.45); ABG PO2 70.3 MM HG (80-95)
[2020-09-04 16:50] LABS: Hematocrit 25.7 VOL% (42.0-52.0)
[2020-09-04 16:52] LABS: Hemoglobin 8.2 GM/DL (14.0-18.0)
[2020-09-04] MEDS: DEXMEDETOMIDINE 400 MCG in SODIUM CHLORIDE 0.9% 96 ML IV PRN (17:47)
[2020-09-05 03:34] LABS: ABG HCO3 26.2 MMOL/L (20-26); ABG Oxygen Saturation 99.7 % (95-100); ABG PCO2 45.9 MM HG (35-48); ABG PH 7.383 (7.35-7.45); ABG TCO2 25.4 MMOL/L (23-27); Allen Test Positive; Pt O2 Delivery Device Ventilator
[2020-09-05] MEDS: MEROPENEM 500 MG in SODIUM CHLORIDE 0.9% 100 ML IV SCH ×3 (04:40→20:35)
[2020-09-05 06:11] LABS: Basophils % 0.1 % (0.0-0.8); Eosinophils % 0.3 % (0.00-10.9); Hematocrit 25.9 VOL% (42.0-52.0); Hemoglobin 8.2 GM/DL (14.0-18.0); Immature Granulocytes % 2.9 %; Immature Granulocytes Absolute 0.34 #; Lymphocytes # 1.1 10*3/uL (1.4-4.0); Lymphocytes % 9.7 % (21.2-54.2); Mean Corpuscular HGB Conc 31.7 GM/DL (32-36); Mean Corpuscular Volume 98.1 FL (87-102); Mean Platelet Volume 11.1 FL (9.6-12.0); Monocytes % 3.1 % (1.7-12.7); NRBC # 0.09 10*3/uL; Neutrophils % 83.9 % (38.7-73.9); Platelet Count 153 T/CUMM (130-400); Red Blood Count 2.64 MC/CUMM (3.8-5.5); Red Cell Distribution Width 19.4 % (9.3-17.3); White Blood Count 11.7 T/CUMM (4-12)
[2020-09-05 06:31] LABS: Calcium 8.5 MG/DL (8.5-10.1); Osmolality,Calculated 318.1 MOS/KG (273-304)
[2020-09-05] MEDS: INSULIN LISPRO 100 UNIT/ML SUBCUT SCH ×3 (06:47→18:42)
[2020-09-05] MEDS: PHENYLEPHRINE INJ 160 MG in SODIUM CHLORIDE 0.9% 234 ML IV PRN (07:30)
[2020-09-05 08:42] LABS: Band Neutrophils 5 % (0-10); Lymphocytes 7 % (20-55); Platelet Estimate Adequate; Polychromasia Slight; Segmented Neutrophils 84 % (50-85); Total Cells Counted 100
[2020-09-05] MEDS: MULTIVITAMIN (CENTRUM) TABLET NG SCH (10:00)
[2020-09-05] MEDS: AMIODARONE 200 MG TABLET PO SCH ×2 (10:00→20:45)
[2020-09-05] MEDS: ASPIRIN CHEW 81 MG TABLET PO SCH (10:00)
[2020-09-05] MEDS: MICAFUNGIN 100 MG in SODIUM CHLORIDE 0.9% 100 ML IV SCH (10:00)
[2020-09-05] MEDS: POTASSIUM CHLORIDE 8 MEQ CAPSULE PO SCH ×2 (10:00→20:47)
[2020-09-05] MEDS: HYDROCORTISONE 10 MG TABLET PO SCH ×2 (10:12→20:46)
[2020-09-05] MEDS: PANTOPRAZOLE 40 MG VIAL IV SCH (10:13)
[2020-09-05] MEDS: ALBUMIN 25% 25 GM in PREMIX 1 EACH IV SCH ×2 (10:14→20:35)
[2020-09-05] MEDS: FUROSEMIDE 40 MG/4 ML VIAL IV SCH ×2 (10:16→17:43)
[2020-09-05] MEDS: DEXMEDETOMIDINE 400 MCG in SODIUM CHLORIDE 0.9% 96 ML IV PRN (10:53)
[2020-09-05] MEDS: carvediloL 12.5 MG TABLET PO SCH ×2 (11:03→20:46)
[2020-09-05] MEDS: VANCOMYCIN INJ 1,250 MG in SODIUM CHLORIDE 0.9% 250 ML IV SCH ×2 (11:04→13:48)
[2020-09-05 12:27] LABS: Total Protein 5.6 G/DL (6.4-8.3)
[2020-09-05 14:42] LABS: Lymphocytes,Pleural Fluid 49 %; Monocytes,Pleural Fluid 4 %; Neutrophils,Pleural Fluid 47 %
[2020-09-05 14:44] LABS: RBC,Pleural Fluid 76664 T/CUMM
[2020-09-06] MEDS: INSULIN LISPRO 100 UNIT/ML SUBCUT SCH ×5 (00:22→23:48)
[2020-09-06 04:32] LABS: ABG Base Excess 5.4 MMOL/L (-2.5-2.5); ABG HCO3 29.3 MMOL/L (20-26); ABG PCO2 36.9 MM HG (35-48); ABG PH 7.501 (7.35-7.45); ABG TCO2 27.4 MMOL/L (23-27); Allen Test Positive; Pt O2 Delivery Device Ventilator
[2020-09-06] MEDS: MEROPENEM 500 MG in SODIUM CHLORIDE 0.9% 100 ML IV SCH ×3 (05:10→21:45)
[2020-09-06 05:33] LABS: Basophils % 0.2 % (0.0-0.8); Eosinophils % 0.2 % (0.00-10.9); Hematocrit 19.8 VOL% (42.0-52.0); Immature Granulocytes % 1.5 %; Immature Granulocytes Absolute 0.15 #; Lymphocytes # 1.8 10*3/uL (1.4-4.0); Lymphocytes % 18.1 % (21.2-54.2); Mean Corpuscular HGB Conc 32.3 GM/DL (32-36); Mean Corpuscular Volume 98.5 FL (87-102); Mean Platelet Volume 10.8 FL (9.6-12.0); Monocytes % 4.4 % (1.7-12.7); NRBC # 0.07 10*3/uL; Neutrophils % 75.6 % (38.7-73.9); Platelet Count 125 T/CUMM (130-400); Red Blood Count 2.01 MC/CUMM (3.8-5.5); White Blood Count 9.8 T/CUMM (4-12)
[2020-09-06 05:35] LABS: Hemoglobin 6.4 GM/DL (14.0-18.0)
[2020-09-06] MEDS: DEXMEDETOMIDINE 400 MCG in SODIUM CHLORIDE 0.9% 96 ML IV PRN ×2 (05:39→21:15)
[2020-09-06 05:58] LABS: Calcium 8.2 MG/DL (8.5-10.1)
[2020-09-06] MEDS ORDERED: SODIUM CHLORIDE 0.9% 1,000 ML IV PRN (06:00)
[2020-09-06] MEDS: carvediloL 12.5 MG TABLET PO SCH ×2 (08:20→21:44)
[2020-09-06] MEDS: AMIODARONE 200 MG TABLET PO SCH ×2 (08:21→21:44)
[2020-09-06] MEDS: PANTOPRAZOLE 40 MG VIAL IV SCH (10:18)
[2020-09-06] MEDS: MULTIVITAMIN (CENTRUM) TABLET NG SCH (10:18)
[2020-09-06] MEDS: POTASSIUM CHLORIDE 8 MEQ CAPSULE PO SCH ×2 (10:19→21:45)
[2020-09-06] MEDS: ASPIRIN CHEW 81 MG TABLET PO SCH (10:19)
[2020-09-06] MEDS: HYDROCORTISONE 10 MG TABLET PO SCH ×2 (10:19→21:44)
[2020-09-06] MEDS: ALBUMIN 25% 25 GM in PREMIX 1 EACH IV SCH ×2 (10:21→21:44)
[2020-09-06] MEDS: MICAFUNGIN 100 MG in SODIUM CHLORIDE 0.9% 100 ML IV SCH (10:27)
[2020-09-06] MEDS: FUROSEMIDE 40 MG/4 ML VIAL IV SCH (10:46)
[2020-09-06] MEDS ORDERED: VANCOMYCIN INJ 1,250 MG in SODIUM CHLORIDE 0.9% 250 ML IV SCH (12:00)
[2020-09-06 14:34] LABS: Hematocrit 22.6 VOL% (42.0-52.0); Hemoglobin 7.3 GM/DL (14.0-18.0)
[2020-09-06 21:03] LABS: Hematocrit 24.4 VOL% (42.0-52.0)
[2020-09-07 03:21] LABS: Basophils % 0.2 % (0.0-0.8); Eosinophils # 0.1 10*3/uL (0.0-0.87); Eosinophils % 0.5 % (0.00-10.9); Hematocrit 23.6 VOL% (42.0-52.0); Hemoglobin 7.7 GM/DL (14.0-18.0); Immature Granulocytes % 1.8 %; Immature Granulocytes Absolute 0.26 #; Lymphocytes # 4.3 10*3/uL (1.4-4.0); Lymphocytes % 29.3 % (21.2-54.2); Mean Corpuscular HGB Conc 32.6 GM/DL (32-36); Mean Corpuscular Volume 96.7 FL (87-102); Mean Platelet Volume 10.5 FL (9.6-12.0); Monocytes % 5.3 % (1.7-12.7); NRBC # 0.23 10*3/uL; Neutrophils % 62.9 % (38.7-73.9); Platelet Count 112 T/CUMM (130-400); Red Blood Count 2.44 MC/CUMM (3.8-5.5); Red Cell Distribution Width 17.6 % (9.3-17.3); White Blood Count 14.6 T/CUMM (4-12)
[2020-09-07 03:40] LABS: Calcium 7.8 MG/DL (8.5-10.1); Osmolality,Calculated 325.9 MOS/KG (273-304)
[2020-09-07 03:42] LABS: Band Neutrophils 2 % (0-10); Hypochromasia 1+; Lymphocytes 23 % (20-55); Nucleated Red Blood Cells 2 (0-5); Platelet Estimate Adequate; Segmented Neutrophils 73 % (50-85); Total Cells Counted 100
[2020-09-07 03:53] LABS: ABG Base Excess 2.1 MMOL/L (-2.5-2.5); ABG HCO3 25.6 MMOL/L (20-26); ABG PCO2 35.1 MM HG (35-48); ABG PH 7.481 (7.35-7.45); ABG TCO2 26.7 MMOL/L (23-27)
[2020-09-07] MEDS: DEXMEDETOMIDINE 400 MCG in SODIUM CHLORIDE 0.9% 96 ML IV PRN ×3 (04:48→21:08)
[2020-09-07] MEDS: INSULIN LISPRO 100 UNIT/ML SUBCUT SCH ×3 (06:13→18:18)
[2020-09-07] MEDS: PHENYLEPHRINE INJ 160 MG in SODIUM CHLORIDE 0.9% 234 ML IV PRN (09:00)
[2020-09-07] MEDS: MEROPENEM 500 MG in SODIUM CHLORIDE 0.9% 100 ML IV SCH ×2 (09:10→17:03)
[2020-09-07] MEDS: ALBUMIN 25% 25 GM in PREMIX 1 EACH IV SCH ×2 (09:10→21:07)
[2020-09-07] MEDS: PANTOPRAZOLE 40 MG VIAL IV SCH ×2 (09:12→21:08)
[2020-09-07] MEDS: MULTIVITAMIN (CENTRUM) TABLET NG SCH (09:24)
[2020-09-07] MEDS: ASPIRIN CHEW 81 MG TABLET PO SCH (09:24)
[2020-09-07] MEDS: AMIODARONE 200 MG TABLET PO SCH ×2 (09:25→21:07)
[2020-09-07] MEDS: HYDROCORTISONE 10 MG TABLET PO SCH ×2 (09:25→21:07)
[2020-09-07] MEDS: FUROSEMIDE 40 MG/4 ML VIAL IV SCH (09:25)
[2020-09-07] MEDS: POTASSIUM CHLORIDE 8 MEQ CAPSULE PO SCH ×2 (09:25→21:07)
[2020-09-07] MEDS: carvediloL 12.5 MG TABLET PO SCH ×2 (09:25→21:07)
[2020-09-07] MEDS: MICAFUNGIN 100 MG in SODIUM CHLORIDE 0.9% 100 ML IV SCH (09:26)
[2020-09-08] MEDS: MEROPENEM 500 MG in SODIUM CHLORIDE 0.9% 100 ML IV SCH ×3 (01:00→17:35)
[2020-09-08] MEDS: INSULIN LISPRO 100 UNIT/ML SUBCUT SCH ×4 (02:37→17:40)
[2020-09-08] MEDS: PHENYLEPHRINE INJ 160 MG in SODIUM CHLORIDE 0.9% 234 ML IV PRN (06:06)
[2020-09-08] MEDS: DEXMEDETOMIDINE 400 MCG in SODIUM CHLORIDE 0.9% 96 ML IV PRN ×3 (06:06→22:36)
[2020-09-08 06:40] LABS: Basophils % 0.1 % (0.0-0.8); Eosinophils % 0.3 % (0.00-10.9); Immature Granulocytes Absolute 0.14 #; Lymphocytes # 1.6 10*3/uL (1.4-4.0); Lymphocytes % 23.4 % (21.2-54.2); Mean Corpuscular HGB Conc 31.7 GM/DL (32-36); Mean Corpuscular Volume 98.9 FL (87-102); Mean Platelet Volume 10.4 FL (9.6-12.0); NRBC # 0.15 10*3/uL; Neutrophils % 68.2 % (38.7-73.9); Platelet Count 69 T/CUMM (130-400); Red Blood Count 1.82 MC/CUMM (3.8-5.5); Red Cell Distribution Width 18.8 % (9.3-17.3)
[2020-09-08 06:42] LABS: Hemoglobin 5.7 GM/DL (14.0-18.0)
[2020-09-08] MEDS ORDERED: SODIUM CHLORIDE 0.9% 1,000 ML IV PRN ×2 (07:12→10:08)
[2020-09-08 07:18] LABS: Osmolality,Calculated 329.7 MOS/KG (273-304)
[2020-09-08 07:41] LABS: Anisocytosis 1+; Hypochromasia 1+; Microcytosis 1+; Polychromasia Slight
[2020-09-08 07:42] LABS: Platelet Estimate Decreased
[2020-09-08 07:43] LABS: Target Cells Slight
[2020-09-08] MEDS: ALBUMIN 25% 25 GM in PREMIX 1 EACH IV SCH ×2 (09:04→22:30)
[2020-09-08] MEDS: AMIODARONE 200 MG TABLET PO SCH ×2 (09:04→22:31)
[2020-09-08] MEDS: MULTIVITAMIN (CENTRUM) TABLET NG SCH (09:04)
[2020-09-08] MEDS: POTASSIUM CHLORIDE 8 MEQ CAPSULE PO SCH ×2 (09:04→22:31)
[2020-09-08] MEDS: carvediloL 12.5 MG TABLET PO SCH ×2 (09:05→22:31)
[2020-09-08] MEDS: FUROSEMIDE 40 MG/4 ML VIAL IV SCH ×3 (09:05→22:30)
[2020-09-08] MEDS: HYDROCORTISONE 10 MG TABLET PO SCH ×2 (09:09→22:56)
[2020-09-08] MEDS: PANTOPRAZOLE 40 MG VIAL IV SCH ×2 (09:10→22:44)
[2020-09-08] MEDS ORDERED: KETAMINE 500 MG/10 ML VIAL ONE (10:20)
[2020-09-08] MEDS ORDERED: MIDAZOLAM 2 MG/2 ML VIAL ONE (10:38)
[2020-09-08] MEDS: MICAFUNGIN 100 MG in SODIUM CHLORIDE 0.9% 100 ML IV SCH (11:24)
[2020-09-08 15:32] VITALS: BP 168/85
[2020-09-08 17:06] LABS: Hematocrit 26.2 VOL% (42.0-52.0)
[2020-09-08 17:20] LABS: INR 1.2; PT Patient Result 12.4 SECS (9.8-11.9); Partial Thromboplastin Time 31.9 SECS (23.9-33.8)
[2020-09-09] MEDS: MEROPENEM 500 MG in SODIUM CHLORIDE 0.9% 100 ML IV SCH (00:52)
[2020-09-09] MEDS: INSULIN LISPRO 100 UNIT/ML SUBCUT SCH ×5 (02:03→23:48)
[2020-09-09 04:47] LABS: ABG Base Excess 4.3 MMOL/L (-2.5-2.5); ABG HCO3 25.9 MMOL/L (20-26); ABG Oxygen Saturation 98.3 % (95-100); ABG PCO2 27.8 MM HG (35-48); ABG PH 7.587 (7.35-7.45); ABG TCO2 26.7 MMOL/L (23-27)
[2020-09-09 05:05] LABS: Basophils % 0.2 % (0.0-0.8); Eosinophils # 0.1 10*3/uL (0.0-0.87); Eosinophils % 2.2 % (0.00-10.9); Immature Granulocytes % 1.6 %; Immature Granulocytes Absolute 0.09 #; Lymphocytes # 1.6 10*3/uL (1.4-4.0); Lymphocytes % 29.2 % (21.2-54.2); Mean Corpuscular HGB Conc 33.3 GM/DL (32-36); Mean Corpuscular Volume 94.1 FL (87-102); Mean Platelet Volume 11.2 FL (9.6-12.0); Monocytes % 6.5 % (1.7-12.7); NRBC # 0.15 10*3/uL; Neutrophils % 60.3 % (38.7-73.9); Red Cell Distribution Width 17.9 % (9.3-17.3); White Blood Count 5.5 T/CUMM (4-12)
[2020-09-09 05:23] LABS: Calcium 8.5 MG/DL (8.5-10.1); Osmolality,Calculated 328.7 MOS/KG (273-304)
[2020-09-09 05:24] LABS: Platelet Count 46 T/CUMM (130-400); Red Blood Count 2.87 MC/CUMM (3.8-5.5)
[2020-09-09 05:35] LABS: Hypochromasia 1+; Microcytosis 1+; Platelet Estimate Decreased
[2020-09-09] MEDS: ALBUMIN 25% 25 GM in PREMIX 1 EACH IV SCH ×2 (09:04→21:18)
[2020-09-09] MEDS: POTASSIUM CHLORIDE 8 MEQ CAPSULE PO SCH ×2 (09:04→21:19)
[2020-09-09] MEDS: MULTIVITAMIN (CENTRUM) TABLET NG SCH (09:04)
[2020-09-09] MEDS: AMIODARONE 200 MG TABLET PO SCH ×2 (09:04→21:20)
[2020-09-09] MEDS: carvediloL 12.5 MG TABLET PO SCH ×2 (09:04→21:20)
[2020-09-09] MEDS: PANTOPRAZOLE 40 MG VIAL IV SCH ×2 (09:05→21:19)
[2020-09-09] MEDS: MICAFUNGIN 100 MG in SODIUM CHLORIDE 0.9% 100 ML IV SCH (09:09)
[2020-09-09] MEDS: DEXMEDETOMIDINE 400 MCG in SODIUM CHLORIDE 0.9% 96 ML IV PRN (09:09)
[2020-09-09 12:23] LABS: ABG Base Excess 4.2 MMOL/L (-2.5-2.5); ABG HCO3 28.3 MMOL/L (20-26); ABG Oxygen Saturation 99.9 % (95-100); ABG PCO2 37.7 MM HG (35-48); ABG PH 7.478 (7.35-7.45); ABG TCO2 25.7 MMOL/L (23-27)
[2020-09-09] MEDS: HYDROCORTISONE 10 MG TABLET PO SCH ×2 (12:28→21:19)
[2020-09-09] MEDS: FUROSEMIDE 40 MG/4 ML VIAL IV SCH ×2 (12:35→23:47)
[2020-09-09] MEDS ORDERED: VANCOMYCIN INJ 1,250 MG in SODIUM CHLORIDE 0.9% 250 ML IV PRN (13:42)
[2020-09-10 04:04] LABS: Allen Test Positive
[2020-09-10 04:08] LABS: ABG Base Excess 4.7 MMOL/L (-2.5-2.5); ABG HCO3 28.6 MMOL/L (20-26); ABG Oxygen Saturation 88.4 % (95-100); ABG PCO2 49.4 MM HG (35-48); ABG PH 7.395 (7.35-7.45); ABG TCO2 28.5 MMOL/L (23-27)
[2020-09-10 04:40] LABS: Basophils % 0.2 % (0.0-0.8); Eosinophils % 0.2 % (0.00-10.9); Hematocrit 24.3 VOL% (42.0-52.0); Hemoglobin 7.8 GM/DL (14.0-18.0); Immature Granulocytes Absolute 0.05 #; Lymphocytes # 0.7 10*3/uL (1.4-4.0); Lymphocytes % 14.3 % (21.2-54.2); Mean Corpuscular HGB Conc 32.1 GM/DL (32-36); Mean Corpuscular Volume 98.4 FL (87-102); Mean Platelet Volume 11.3 FL (9.6-12.0); Monocytes % 5.2 % (1.7-12.7); NRBC # 0.05 10*3/uL; Neutrophils % 79.1 % (38.7-73.9); Platelet Count 45 T/CUMM (130-400); Red Blood Count 2.47 MC/CUMM (3.8-5.5); Red Cell Distribution Width 18.8 % (9.3-17.3); White Blood Count 4.8 T/CUMM (4-12)
[2020-09-10 04:58] LABS: Hypochromasia 2+; Microcytosis 1+; Ovalocytes Slight; Platelet Estimate Decreased
[2020-09-10 05:03] LABS: Calcium 8.1 MG/DL (8.5-10.1)
[2020-09-10] MEDS: INSULIN LISPRO 100 UNIT/ML SUBCUT SCH ×2 (06:26→12:56)
[2020-09-10] MEDS: POTASSIUM CHLORIDE RIDER 20 MEQ in PREMIX 1 EACH IV PRN ×2 (08:30→10:25)
[2020-09-10] MEDS: AMIODARONE 200 MG TABLET PO SCH (08:30)
[2020-09-10] MEDS: HYDROCORTISONE 10 MG TABLET PO SCH (08:30)
[2020-09-10] MEDS: POTASSIUM CHLORIDE 8 MEQ CAPSULE PO SCH (08:30)
[2020-09-10] MEDS: MULTIVITAMIN (CENTRUM) TABLET NG SCH (08:30)
[2020-09-10] MEDS: carvediloL 12.5 MG TABLET PO SCH (08:30)
[2020-09-10] MEDS: PANTOPRAZOLE 40 MG VIAL IV SCH (08:30)
[2020-09-10] MEDS: ALBUMIN 25% 25 GM in PREMIX 1 EACH IV SCH (08:34)
[2020-09-10] MEDS: FUROSEMIDE 40 MG/4 ML VIAL IV SCH (09:41)
[2020-09-10 12:15] LABS: Allen Test Positive
[2020-09-10 12:17] LABS: ABG Base Excess 4.2 MMOL/L (-2.5-2.5); ABG HCO3 28.2 MMOL/L (20-26); ABG Oxygen Saturation 99.9 % (95-100); ABG PCO2 53.2 MM HG (35-48); ABG PH 7.363 (7.35-7.45); ABG TCO2 28.6 MMOL/L (23-27)
[2020-09-10] MEDS ORDERED: SODIUM CHLORIDE 0.9% 1,000 ML IV PRN (13:51)
[2020-09-10 14:41] LABS: Mycoplasma pneumoniae Ab Inter SEE COMMENTS; Mycoplasma pneumoniae Ab, IgG Positive (Negative); Mycoplasma pneumoniae Ab, IgM Negative (Negative)
[2020-09-19 17:49] LABS: Source Pleural Fluid
[2020-09-19 17:51] LABS: Adenosine Deaminase Pleural Fl 3
== END 2020-09-10 14:10 | disposition expired ==
LOC: EDUNIT# → EDBD → N.ED 10:24 → N.EDINP 13:38 → SUATTDRO 13:38 → N.ICU 14:31 → N.TELES 08-26 15:21 → N.ICU 08-31 00:17
PROVIDERS: ADMIT Internal Medicine; ATTEND Family Medicine
PROC: IRTHORA (2020-09-05 13:15)